=== PATIENT | male | born 1955 | race Hispanic/Latino ===

== ENCOUNTER 2018-08-23 14:33 | Inpatient (IN) | payer MEDICAID ==
[2018-08-23 14:44] VITALS: BMI 20.6
--- NOTE | 2018-08-23 15:03 | ED PDOC ---
Arrival/HPI - General Chief Complaint: Shortness Of Breath Time Seen by Provider: 08/23/18 14:36 Historian: Patient - History of Present Illness Narrative History of Present Illness (Text): 08/23/18 17:02 63 year old male, whose past medical history includes COPD, ETOH abuse, peripheral artery disease, and right foot toe amputation, who presents to the emergency department complaining of dizziness, shortness of breath, and dec reased appetite x 4 days. Patent reports he is unable to walk and states "everything hurts". Patient is concerned for collapsed lung. He denies any fever, chills, headaches, chest pain, or any other complaints. Time/Duration: > week Symptom Onset: Gradual Symptom Course: Unchanged Activities at Onset: Light Context: Home Past Medical History - Provider Review Nursing Documentation Reviewed: Yes - Infectious Disease Hx of Infectious Diseases: None - Tetanus Immunization Tetanus Immunization: Unknown - Cardiac Hx Cardiac Disorders: No - Pulmonary Hx Asthma: Yes Hx Bronchitis: Yes Hx Pneumonia: Yes Other/Comment: Collapsed lung - Neurological Hx Neurological Disorder: No - HEENT Hx HEENT Disorder: No - Renal Hx Renal Disorder: No - Endocrine/Metabolic Hx Endocrine Disorders: No Other/Comment: Pre-diabetic - Hematological/Oncological Hx Blood Disorders: No Hx AIDS: No - Integumentary Hx Dermatological Disorder: Yes Hx Cellulitis: Yes - Musculoskeletal/Rheumatological Hx Falls: Yes - Gastrointestinal Hx Gastrointestinal Disorders: Yes - Genitourinary/Gynecological Hx Genitourinary Disorders: Yes (inguinal hernia) - Psychiatric Hx Psychophysiologic Disorder: Yes (etoh abuse) Hx Substance Use: No - Surgical History Other/Comment: toe amputation - Anesthesia Hx Anesthesia: Yes Hx Anesthesia Reactions: No Hx Malignant Hyperthermia: No Family/Social History - Physician Review Nursing Documentation Reviewed: Yes Family/Social History: Unknown Family HX Smoking Status: Heavy Smoker > 10 Cigarettes Daily Hx Alcohol Use: Yes Frequency of alcohol use: Few days per week Hx Substance Use: No Allergies/Home Meds Allergies/Adverse Reactions: Allergies strawberry Allergy (Mild, Verified 08/23/18 14:44) ITCHING EGG Allergy (Verified 08/23/18 14:44) ITCHING peanut Allergy (Verified 08/23/18 14:44) ITCHING peanut oil Allergy (Verified 08/23/18 14:44) ITCHING Penicillins Allergy (Verified 08/23/18 14:44) RASH Review of Systems - Physician Review All systems were reviewed & negative as marked: Yes - Review of Systems Constitutional: absent: Fevers Respiratory: SOB. absent: Cough Cardiovascular: absent: Chest Pain Gastrointestinal: Appetite Changes. absent: Abdominal Pain Musculoskeletal: absent: Back Pain, Neck Pain Neurological: Dizziness. absent: Headache Endocrine: absent: Diaphoresis Physical Exam Vital Signs Reviewed: Yes Vital Signs Temp Pulse Resp BP Pulse Ox 08/23/18 14:55 98.1 F 93 H 18 112/75 95 Temperature: Afebrile Blood Pressure: Normal Pulse: Regular Respiratory Rate: Normal Appearance: Positive for: Non-Toxic, Comfortable, Unkept, Other (Poor hygeine) Pain Distress: None Mental Status: Positive for: Alert and Oriented X 3 - Systems Exam Head: Present: Atraumatic, Normocephalic Pupils: Present: PERRL Extroacular Muscles: Present: EOMI Conjunctiva: Present: Normal Mouth: Present: Moist Mucous Membranes Neck: Present: Normal Range of Motion Respiratory/Chest: Present: Good Air Exchange, Wheezes (mild expiratory wheezing), Other (prolonged expiratory phase ). No: Respiratory Distress, Accessory Muscle Use, Decreased Breath Sounds (equal breath sounds) Cardiovascular: Present: Regular Rate and Rhythm, Normal S1, S2. No: Murmurs Abdomen: No: Tenderness, Distention, Peritoneal Signs Back: Present: Normal Inspection Upper Extremity: Present: Normal Inspection. No: Cyanosis, Edema Lower Extremity: Present: Normal Inspection. No: Edema Neurological: Present: GCS=15, Speech Normal Skin: Present: Warm, Dry, Normal Color. No: Rashes Psychiatric: Present: Alert, Oriented x 3, Normal Insight, Normal Concentration Medical Decision Making ED Course and Treatment: 08/23/18 16:58 Impression: 63 year old male presents to the emergency department complaining of dizziness, shortness of breath, and decreased appetite x 4 days Plan: -- EKG -- Labs -- CXR -- Iv fluids -- Urinalysis -- Reassess and disposition Prior Visits: Notes and results from previous visits were reviewed. Progress Notes: 08/23/18 16:20 EKG reviewed shows: NSR at 92 bpm, normal axis, normal intervals. 08/23/18 18:06 Pre neb peak flow 150 08/23/18 18:30 Post neb peak flow 170 08/23/18 18:35 Case d/w Dr. Chilel who accepts patient to her service. Results of w/u and plan to admit for further evaluation and management. Patient agreeable w/POC. - Scribe Statement The provider has reviewed the documentation as recorded by the Scribe Edenilson Mckee All medical record entries made by the Scribe were at my direction and personally dictated by me. I have reviewed the chart and agree that the record accurately reflects my personal performance of the history, physical exam, medical decision making, and the department course for this patient. I have also personally directed, reviewed, and agree with the discharge instructions and disposition. Disposition/Present on Arrival - Present on Arrival Any Indicators Present on Arrival: No History of DVT/PE: No History of Uncontrolled Diabetes: No Urinary Catheter: No History of Decub. Ulcer: No History Surgical Site Infection Following: None - Disposition Have Diagnosis and Disposition been Completed?: Yes Diagnosis: COPD (chronic obstructive pulmonary disease) Disposition: HOSPITALIZED Disposition Time: 18:30 Patient Plan: Admission Patient Problems: Current Active Problems Problem Status Onset COPD (chronic obstructive pulmonary disease) Acute Condition: STABLE
[2018-08-23 15:29] LABS: BASO # 0.01 K/mm3 (0.0-2.0); BASO % 0.1 % (0.0-3.0); EOS % 0.1 % (1.5-5.0); HEMOGLOBIN 10.6 g/dL (14.0-18.0); LYMPH # 1.6 (1.2-3.4); LYMPH % 17.6 % (22.0-35.0); MEAN CELL VOLUME 94.9 fl (80.0-105.0); MEAN CORPUSCULAR HEMOGLOBIN 31.6 pg (25.0-35.0); MEAN CORPUSCULAR HGB CONC 33.3 g/dl (31.0-37.0); MEAN PLATELET VOLUME 11.6 fl (7.0-11.0); MONO # 0.5 (0.1-0.6); MONO % 5.8 % (1.0-6.0); RBC 3.35 10^6/uL (3.5-6.1); RED CELL DISTRIBUTION WIDTH 14.4 % (11.5-14.5); WHITE BLOOD COUNT 9.3 10^3/uL (4.5-11.0)
[2018-08-23 15:40] LABS: ALB/GLOB RATIO 1.6 (1.1-1.8); ALBUMIN 3.6 g/dL (3.0-4.8); ALT/SGPT 113 U/L (7-56); AST/SGOT 78 U/L (17-59); BLOOD UREA NITROGEN 32 mg/dL (7-21); CALCIUM 8.2 mg/dL (8.4-10.5); GFR NON-AFRICAN AMERICAN > 60
[2018-08-23 15:52] LABS: B-TYPE NATRIURETIC PEPTIDE 147 pg/mL (0-450); TROPONIN I < 0.01 ng/mL
[2018-08-23 16:07] LABS: INR 0.94; PARTIAL THROMBOPLASTIN TIME 26.4 Seconds (26.9-38.3); PROTHROMBIN TIME 10.4 SECONDS (9.4-12.5)
[2018-08-23] MEDS ORDERED: Sodium Chloride 0.9% 1,000 ML IV SCH (16:30)
[2018-08-23 17:12] LABS: URINE BILIRUBIN NEGATIVE (NEGATIVE); URINE BLOOD TRACE-INTACT (NEGATIVE); URINE GLUCOSE (UA) NEGATIVE (NEGATIVE); URINE LEUKOCYTE ESTERASE NEGATIVE Leu/uL (NEGATIVE); URINE PROTEIN NEGATIVE mg/dL (<30 mg/dL); URINE UROBILINOGEN 0.2 E.U./dL (<1 E.U./dL)
[2018-08-23 17:14] LABS: URINE APPEARANCE CLEAR (CLEAR); URINE COLOR YELLOW (YELLOW)
[2018-08-23 17:26] LABS: URINE RBC 0 - 2 /hpf (0-2)
[2018-08-23] MEDS: Albuterol-Ipratrop 3 mg / 0.5 (3 ml) UD IH SCH ×2 (18:11→20:23)
--- NOTE | 2018-08-23 19:00 | CARD ---
APPROVED REPORT Date of service: 08/23/2018 EKG Measurement Heart [id number] <Conclusion> Normal sinus rhythm Normal ECG
[2018-08-23] MEDS ORDERED: Albuterol-Ipratrop 3 mg / 0.5 (3 ml) UD IH PRN (19:26)
[2018-08-23] MEDS ORDERED: Azithromycin 500MG/NS 250ml 500 MG/250 ML BAG IVPB STA (19:29)
[2018-08-23 19:57] LABS: OSMOLALITY,SERUM 283 mosm/kg (272-300)
[2018-08-23] MEDS ORDERED: Multivitamin (MVI) 10 ML, Thiamine 100 MG, Folic Acid 1 MG in Sodium Chloride 0.9% 1,00... IV ONE (19:58)
--- NOTE | 2018-08-23 20:09 | CP.PCM.HP ---
<Monik Haley - Last Filed: 08/23/18 19:48> History of Present Illness - History of Present Illness History of Present Illness: Mnoik Haley, PGY1 Medicine H&P Note for Dr. Schuster: CC: Chest pain, SOB Pt is a 63 yo M with pmhx of COPD, etOH abuse, b/l LE ulcers, PAD, pneumothorax, HLD who presents to the [facility] ED for chest pain, SOB which he states started 2 days ago. Pt reports that he noticed that he was having some L sided chest pain that does not radiate and is not related to exertion when he woke up. He states that he also always has SOB but it has become increasingly worse and he has a cough now that is productive of green sputum. Pt at this time denies any fevers, chills, headache, palpitations, abd pain, n/v, c/d or dysuria. Pt states that he has a cough which is productive and L sided chest pain that is non-radiating and not related to exertion. Pmhx: COPD, etOH abuse, b/l LE ulcers, PAD, pneumothorax, HLD Pshx: R toe amputation 2/2 infection Meds: Only admits to taking tylenol All: PCN - Hives Soc: Smokes 2ppd x 30 yrs, beer 4-5 daily, denies illicit drug use Fam: Non-contributory PMD: Dr. Gilbert Pharm: Unknown Present on Admission - Present on Admission Any Indicators Present on Admission: No Review of Systems - Review of Systems Review of Systems: 12 point ROS reviewed and negative except for noted in HPI above. Past Patient History - Infectious Disease Hx of Infectious Diseases: None - Tetanus Immunizations Tetanus Immunization: Unknown - Past Medical History & Family History Past Medical History?: Yes - Past Social History Smoking Status: Heavy Smoker > 10 Cigarettes Daily - CARDIAC Hx Cardiac Disorders: No - PULMONARY Hx Asthma: Yes Hx Bronchitis: Yes Hx Pneumonia: Yes Other/Comment: Collapsed lung - NEUROLOGICAL Hx Neurological Disorder: No - HEENT Hx HEENT Problems: No - RENAL Hx Chronic Kidney Disease: No - ENDOCRINE/METABOLIC Hx Endocrine Disorders: No Other/Comment: Pre-diabetic - HEMATOLOGICAL/ONCOLOGICAL Hx Blood Disorders: No Hx AIDS: No - INTEGUMENTARY Hx Dermatological Problems: Yes Hx Cellulitis: Yes - MUSCULOSKELETAL/RHEUMATOLOGICAL Hx Falls: Yes - GASTROINTESTINAL Hx Gastrointestinal Disorders: Yes - GENITOURINARY/GYNECOLOGICAL Hx Genitourinary Disorders: Yes (inguinal hernia) - PSYCHIATRIC Hx Psychophysiologic Disorder: Yes (etoh abuse) Hx Substance Use: No - SURGICAL HISTORY Other/Comment: toe amputation - ANESTHESIA Hx Anesthesia: Yes Hx Anesthesia Reactions: No Hx Malignant Hyperthermia: No Meds Allergies/Adverse Reactions: Allergies Allergy/AdvReac Type Severity Reaction Status Date / Time strawberry Allergy Mild ITCHING Verified 08/23/18 14:44 EGG Allergy ITCHING Verified 08/23/18 14:44 peanut Allergy ITCHING Verified 08/23/18 14:44 peanut oil Allergy ITCHING Verified 08/23/18 14:44 Penicillins Allergy RASH Verified 08/23/18 14:44 Physical Exam - Constitutional Appears: Non-toxic, Cachectic - Head Exam Head Exam: ATRAUMATIC, NORMAL INSPECTION, NORMOCEPHALIC - Eye Exam Eye Exam: EOMI, Normal appearance, PERRL - Respiratory Exam Respiratory Exam: Accessory Muscle Use, Clear to Auscultation Bilateral, NORMAL BREATHING PATTERN. absent: Rales, Rhonchi, Wheezes, Respiratory Distress, Stridor - Cardiovascular Exam Cardiovascular Exam: RRR, +S1, +S2. absent: Gallop, Rubs - GI/Abdominal Exam GI & Abdominal Exam: Normal Bowel Sounds, Soft. absent: Distended, Firm, Guarding, Tenderness - Extremities Exam Extremities exam: Positive for: normal capillary refill, pedal pulses present - Back Exam Back exam: NORMAL INSPECTION. absent: CVA tenderness (L), CVA tenderness (R) - Neurological Exam Neurological exam: Alert, Oriented x3 - Psychiatric Exam Psychiatric exam: Normal Affect, Normal Mood - Skin Skin Exam: Dry, Normal Color, Warm Results - Vital Signs Recent Vital Signs: Last Vital Signs Temp 98.1 F 08/23/18 14:55 Pulse 88 08/23/18 19:43 Resp 18 08/23/18 19:43 BP 120/60 08/23/18 19:43 Pulse Ox 95 08/23/18 19:43 - Labs Result Diagrams: 08/23/18 15:24 08/23/18 15:24 Labs: Laboratory Results - last 24 hr 08/23/18 08/23/18 08/23/18 14:54 15:24 15:24 WBC 9.3 RBC 3.35 L Hgb 10.6 L Hct 31.8 L MCV 94.9 MCH 31.6 MCHC 33.3 RDW 14.4 Plt Count 198 MPV 11.6 H Neut % (Auto) 76.4 H Lymph % (Auto) 17.6 L Baxter % (Auto) 5.8 Eos % (Auto) 0.1 L Baso % (Auto) 0.1 Lymph # (Auto) 1.6 Baxter # (Auto) 0.5 Eos # (Auto) 0.0 Baso # (Auto) 0.01 Absolute Neuts (auto) 7.14 H PT 10.4 INR 0.94 APTT 26.4 L Sodium Potassium Chloride Carbon Dioxide Anion Gap BUN Creatinine Est GFR ( Amer) Est GFR (Non-Af Amer) POC Glucose (mg/dL) 90 Random Glucose Calcium Magnesium Total Bilirubin AST ALT Alkaline Phosphatase Lactate Dehydrogenase Total Creatine Kinase Troponin I NT-Pro-B Natriuret Pep Total Protein Albumin Globulin Albumin/Globulin Ratio Urine Color Urine Appearance Urine pH Ur Specific [place] Urine Protein Urine Glucose (UA) Urine Ketones Urine Blood Urine Nitrate Urine Bilirubin Urine Urobilinogen Ur Leukocyte Esterase Urine RBC Urine WBC Ur Epithelial Cells 08/23/18 08/23/18 15:24 17:00 WBC RBC Hgb Hct MCV MCH MCHC RDW Plt Count MPV Neut % (Auto) Lymph % (Auto) Baxter % (Auto) Eos % (Auto) Baso % (Auto) Lymph # (Auto) Baxter # (Auto) Eos # (Auto) Baso # (Auto) Absolute Neuts (auto) PT INR APTT Sodium 128 L Potassium 3.6 Chloride 94 L Carbon Dioxide 24 Anion Gap 14 BUN 32 H Creatinine 0.7 L Est GFR ( Amer) > 60 Est GFR (Non-Af Amer) > 60 POC Glucose (mg/dL) Random Glucose 89 Calcium 8.2 L Magnesium 2.0 Total Bilirubin 0.4 AST 78 H D ALT 113 H Alkaline Phosphatase 45 Lactate Dehydrogenase 375 Total Creatine Kinase 116 Troponin I < 0.01 NT-Pro-B Natriuret Pep 147 Total Protein 5.8 Albumin 3.6 Globulin 2.2 Albumin/Globulin Ratio 1.6 Urine Color Yellow Urine Appearance Clear Urine pH 6.0 Ur Specific [place] 1.015 Urine Protein Negative Urine Glucose (UA) Negative Urine Ketones Trace H Urine Blood Trace-intact H Urine Nitrate Negative Urine Bilirubin Negative Urine Urobilinogen 0.2 Ur Leukocyte Esterase Negative Urine RBC 0 - 2 Urine WBC None Ur Epithelial Cells None Assessment & Plan - Assessment and Plan (Free Text) Assessment: Pt is a 63 yo M with pmhx of COPD, etOH abuse, b/l LE ulcers, PAD, pneumothorax, HLD who presents to the [facility] ED for chest pain, SOB which he states started 2 days ago. Plan: Chest pain r/o ACS: - EKG NSR @ 92 - inital trop (-), trend trops x 2 - ASA 325 in ED - Asa 81 qd - A1c - Lipid panel - Echo 05/26 - LVEF 55-60 COPD exacerbation: - CXR: NAD - Duonebs PRN and Corazon - Azithromax IV EtOH w/drawal: - CIWA protocol - Pt is not in active withdrawal at this time - Ativan 1q2 PRN - Banana bag - Multivitamin PO - Folate, B12 PO - Will cont to monitor Hyponatremia: - Likely 2/2 poor PO intake - IVFs: Banana bag and NS @ 100 Pre-renal azotemia: - BUN/Cr: 32/.7 - IVFs - Will cont to monitor Hx of PAD: - Cont ASA Hx of HLD: - Cont lipitor PPx: DVT: Lovenox Case seen and discussed with Dr. Mariely Haley, PGY-1 <Nathen Schuster - Last Filed: 08/24/18 20:20> Results - Vital Signs Recent Vital Signs: Last Vital Signs Temp 97.9 F 08/24/18 18:00 Pulse 76 08/24/18 18:00 Resp 20 08/24/18 18:00 BP 102/64 08/24/18 18:00 Pulse Ox 93 L 08/24/18 18:00 - Labs Result Diagrams: 08/24/18 17:30 08/24/18 03:40 Labs: Laboratory Results - last 24 hr 08/23/18 08/23/18 08/23/18 15:24 20:20 20:55 WBC RBC Hgb Hct MCV MCH MCHC RDW Plt Count MPV Neut % (Auto) Lymph % (Auto) Baxter % (Auto) Eos % (Auto) Baso % (Auto) Lymph # (Auto) Baxter # (Auto) Eos # (Auto) Baso # (Auto) Absolute Neuts (auto) Sodium Potassium Chloride Carbon Dioxide Anion Gap BUN Creatinine Est GFR ( Amer) Est GFR (Non-Af Amer) Random Glucose Hemoglobin A1c Calcium Total Bilirubin AST ALT Alkaline Phosphatase Troponin I < 0.01 Total Protein Albumin Globulin Albumin/Globulin Ratio Triglycerides Cholesterol LDL Cholesterol Direct HDL Cholesterol Stool Occult Blood Salicylates < 1 L Urine Opiates Screen Negative Urine Methadone Screen Negative Acetaminophen < 10.0 L Ur Barbiturates Screen Negative Ur Phencyclidine Scrn Negative Ur Amphetamines Screen Negative U Benzodiazepines Scrn Negative U Oth Cocaine Metabols Negative U Cannabinoids Screen Negative Blood Type Antibody Screen BBK History Checked 08/24/18 08/24/18 08/24/18 03:40 03:40 03:40 WBC 3.5 L D RBC 2.90 L Hgb 9.5 L Hct 27.5 L MCV 94.8 MCH 32.8 MCHC 34.5 RDW 14.4 Plt Count 137 MPV 10.1 Neut % (Auto) 87.2 H Lymph % (Auto) 11.1 L Baxter % (Auto) 1.7 Eos % (Auto) 0.0 L Baso % (Auto) 0.0 Lymph # (Auto) 0.4 L Baxter # (Auto) 0.1 Eos # (Auto) 0.0 Baso # (Auto) 0.00 Absolute Neuts (auto) 3.07 Sodium 132 Potassium 4.6 Chloride 98 Carbon Dioxide 28 Anion Gap 10 BUN 17 Creatinine 0.5 L Est GFR ( Amer) > 60 Est GFR (Non-Af Amer) > 60 Random Glucose 153 H Hemoglobin A1c 5.8 Calcium 8.1 L Total Bilirubin 0.6 AST 62 H D ALT 93 H Alkaline Phosphatase 42 Troponin I < 0.01 Total Protein 5.4 L Albumin 3.2 Globulin 2.2 Albumin/Globulin Ratio 1.5 Triglycerides 83 Cholesterol 140 LDL Cholesterol Direct 70 HDL Cholesterol 62 H Stool Occult Blood Salicylates Urine Opiates Screen Urine Methadone Screen Acetaminophen Ur Barbiturates Screen Ur Phencyclidine Scrn Ur Amphetamines Screen U Benzodiazepines Scrn U Oth Cocaine Metabols U Cannabinoids Screen Blood Type Antibody Screen BBK History Checked 08/24/18 08/24/18 08/24/18 11:30 13:00 17:30 WBC RBC Hgb 9.0 L Hct 26.1 L MCV MCH MCHC RDW Plt Count MPV Neut % (Auto) Lymph % (Auto) Baxter % (Auto) Eos % (Auto) Baso % (Auto) Lymph # (Auto) Baxter # (Auto) Eos # (Auto) Baso # (Auto) Absolute Neuts (auto) Sodium Potassium Chloride Carbon Dioxide Anion Gap BUN Creatinine Est GFR ( Amer) Est GFR (Non-Af Amer) Random Glucose Hemoglobin A1c Calcium Total Bilirubin AST ALT Alkaline Phosphatase Troponin I Total Protein Albumin Globulin Albumin/Globulin Ratio Triglycerides Cholesterol LDL Cholesterol Direct HDL Cholesterol Stool Occult Blood Positive H Salicylates Urine Opiates Screen Urine Methadone Screen Acetaminophen Ur Barbiturates Screen Ur Phencyclidine Scrn Ur Amphetamines Screen U Benzodiazepines Scrn U Oth Cocaine Metabols U Cannabinoids Screen Blood Type O POSITIVE Antibody Screen Negative BBK History Checked Patient has bt Attending/Attestation - Attestation I have personally seen and examined this patient.: Yes I have fully participated in the care of the patient.: Yes I have reviewed all pertinent clinical information: Yes Notes (Text): 08/24/18 20:20 seen and examined. Discussed with resident. A&P as above.
[2018-08-23 20:27] LABS: ACETAMINOPHEN < 10.0 ug/ml (10.0-20.0); SALICYLATE < 1 mg/dL (2.0-20.0)
[2018-08-23 21:12] LABS: BARBITURATES, UR NEGATIVE (NEGATIVE); BENZODIAZEPINES, UR NEGATIVE (NEGATIVE); OPIATES, UR NEGATIVE (NEGATIVE); PHENCYCLIDINE, UR NEGATIVE (NEGATIVE)
[2018-08-23] MEDS ORDERED: MethylPREDNISolone 40 mg Vial IVP SCH (22:00)
[2018-08-24 04:04] LABS: HEMOGLOBIN 9.5 g/dL (14.0-18.0); LYMPH # 0.4 (1.2-3.4); LYMPH % 11.1 % (22.0-35.0); MEAN CELL VOLUME 94.8 fl (80.0-105.0); MEAN CORPUSCULAR HEMOGLOBIN 32.8 pg (25.0-35.0); MEAN CORPUSCULAR HGB CONC 34.5 g/dl (31.0-37.0); MEAN PLATELET VOLUME 10.1 fl (7.0-11.0); MONO # 0.1 (0.1-0.6); MONO % 1.7 % (1.0-6.0); RBC 2.9 10^6/uL (3.5-6.1); RED CELL DISTRIBUTION WIDTH 14.4 % (11.5-14.5)
[2018-08-24 04:17] LABS: WHITE BLOOD COUNT 3.5 10^3/uL (4.5-11.0)
[2018-08-24 04:28] LABS: LDL CHOLESTEROL 70 mg/dL (0-129)
[2018-08-24 04:29] LABS: TROPONIN I < 0.01 ng/mL
[2018-08-24 04:57] LABS: ALB/GLOB RATIO 1.5 (1.1-1.8); ALBUMIN 3.2 g/dL (3.0-4.8); ALT/SGPT 93 U/L (7-56); AST/SGOT 62 U/L (17-59); BLOOD UREA NITROGEN 17 mg/dL (7-21); CALCIUM 8.1 mg/dL (8.4-10.5); GFR NON-AFRICAN AMERICAN > 60; HDL CHOLESTEROL 62 mg/dL (29-60)
[2018-08-24] MEDS: Budesonide 0.5 mg/2 ml Inhal Susp UD IH SCH ×2 (08:38→19:50)
[2018-08-24] MEDS: Albuterol-Ipratrop 3 mg / 0.5 (3 ml) UD IH SCH ×2 (08:38→19:50)
--- NOTE | 2018-08-24 08:56 | RAD ---
Date of service: 08/23/2018 HISTORY: cp COMPARISON: No prior. TECHNIQUE: Chest PA and lateral views FINDINGS: LUNGS: The lungs have a hyper expanded appearance consistent with COPD. No evidence of pneumonia PLEURA: No significant pleural effusion identified. No pneumothorax apparent. CARDIOVASCULAR: No aortic atherosclerotic calcification present. Normal cardiac size. No pulmonary vascular congestion. OSSEOUS STRUCTURES: No significant abnormalities. VISUALIZED UPPER ABDOMEN: Normal. OTHER FINDINGS: None. IMPRESSION: The lungs have a hyper expanded appearance consistent with COPD. No evidence of pneumonia
[2018-08-24] MEDS: MethylPREDNISolone 40 mg Vial IVP SCH ×3 (09:21→21:36)
[2018-08-24] MEDS: Azithromycin 250 MG in Sodium Chloride 0.9% 250 ML IVPB SCH (09:21)
[2018-08-24] MEDS: Enoxaparin 40 mg Syringe SC SCH (09:22)
--- NOTE | 2018-08-24 12:54 | CP.PCM.PN ---
<Monik Haley - Last Filed: 08/24/18 22:38> Subjective - Date & Time of Evaluation Date of Evaluation: 08/24/18 Time of Evaluation: 12:00 - Subjective Subjective: Monik Haley, PGY1 Medicine Progress Note: Pt was seen and examined this AM at bedside. Pt overnight had no acute events. Pts CIWA was 1 overnight with no ativan given. At this time the pt has no acute complaints and is resting comfortably. He states that his chest pain has improved, as has his SOB. Pt admitted to dark stool per nursing, though this was not witnessed. Objective - Vital Signs/Intake and Output Vital Signs (last 24 hours): Temp Pulse Resp BP Pulse Ox 98.4 F 84 19 124/75 97 08/24/18 12:00 08/24/18 12:00 08/24/18 12:00 08/24/18 12:00 08/23/18 21:44 Intake and Output: 08/24/18 08/24/18 06:59 18:59 Intake Total 1050 Output Total 900 Balance 150 - Medications Medications: Current Medications Albuterol/Ipratropium (Duoneb 3 Mg/0.5 Mg (3 Ml) Ud) 3 ml IH Q2H PRN PRN Reason: Shortness of Breath Albuterol/Ipratropium (Duoneb 3 Mg/0.5 Mg (3 Ml) Ud) 3 ml IH [id number] [facility] Last Admin: 08/24/18 08:38 Dose: 3 ml Aspirin (Aspirin Chewable) 81 mg PO DAILY [facility] Last Admin: 08/24/18 09:22 Dose: 81 mg Atorvastatin Calcium (Lipitor) 40 mg PO DAILY [facility] Last Admin: 08/24/18 09:22 Dose: 40 mg Budesonide (Pulmicort Respules) 0.5 mg IH [id number] [facility] Last Admin: 08/24/18 08:38 Dose: 0.5 mg Enoxaparin Sodium (Lovenox) 40 mg SC DAILY [facility]; Protocol Last Admin: 08/24/18 09:22 Dose: 40 mg Folic Acid (Folic Acid) 1 mg PO DAILY [facility] Last Admin: 08/24/18 09:22 Dose: 1 mg Azithromycin 250 mg/ Sodium (Chloride) 250 mls @ 167 mls/hr IVPB DAILY [facility]; Protocol Last Admin: 08/24/18 09:21 Dose: 167 mls/hr Lorazepam (Ativan) 1 mg IVP Q2 PRN; Protocol PRN Reason: Withdrawal Methylprednisolone (Solu-Medrol) 20 mg IVP Q8 [facility] Last Admin: 08/24/18 09:21 Dose: 20 mg Pantoprazole Sodium (Protonix Inj) 40 mg IVP Q12 [facility] Thiamine HCl (Vitamin B1 Tab) 100 mg PO DAILY [facility] Last Admin: 08/24/18 09:22 Dose: 100 mg - Labs Labs: 08/24/18 03:40 08/24/18 03:40 PT 10.4 SECONDS (9.4-12.5) 08/23/18 15:24 INR 0.94 08/23/18 15:24 APTT 26.4 Seconds (26.9-38.3) L 08/23/18 15:24 - Constitutional Appears: Non-toxic, Cachectic - Head Exam Head Exam: ATRAUMATIC, NORMAL INSPECTION, NORMOCEPHALIC - Eye Exam Eye Exam: EOMI, Normal appearance, PERRL - Respiratory Exam Respiratory Exam: Accessory Muscle Use, Clear to Auscultation Bilateral, NORMAL BREATHING PATTERN. absent: Rales, Rhonchi, Wheezes, Respiratory Distress, Stridor - Cardiovascular Exam Cardiovascular Exam: RRR, +S1, +S2. absent: Gallop, Rubs - GI/Abdominal Exam GI & Abdominal Exam: Normal Bowel Sounds, Soft. absent: Distended, Firm, Guarding, Tenderness - Extremities Exam Extremities exam: Positive for: normal capillary refill, pedal pulses present - Back Exam Back exam: NORMAL INSPECTION. absent: CVA tenderness (L), CVA tenderness (R) - Neurological Exam Neurological exam: Alert, Oriented x3 - Psychiatric Exam Psychiatric exam: Normal Affect, Normal Mood - Skin Skin Exam: Dry, Normal Color, Warm Assessment & Plan - Assessment and Plan (Free Text) Assessment: Pt is a 63 yo M with pmhx of COPD, etOH abuse, b/l LE ulcers, PAD, pneumothorax, HLD who [place] [facility] [place] pain, SOB which he states started 2 days ago. Plan: Chest pain r/o ACS: - EKG NSR @ 92 - Trops (-) x3 - ASA 325 in ED - Asa 81 qd - A1c - 5.8 - Lipid panel - Echo 05/26 - LVEF 55-60 Dark Tarry Stool: - Per pt, pt is having dark tarry stool - FOBT (+) - Will get GI consult - Pt is noted to have a low hgb at this time - Protonix 40 IV BID COPD exacerbation: - CXR: NAD - Duonebs PRN and Corazon - Azithromax IV EtOH w/drawal: - CIWA protocol - Pt is not in active withdrawal at this time - Ativan 1q2 PRN - Banana bag - Multivitamin PO - Folate, B12 PO - Will cont to monitor Hyponatremia: - Likely 2/2 poor PO intake - IVFs: Banana bag and NS @ 100 Pre-renal azotemia: - BUN/Cr: 32/.7 - IVFs - Will cont to monitor Hx of PAD: - Cont ASA Hx of HLD: - Cont lipitor PPx: DVT: Lovenox GI: Protonix 40 IVP BID Case seen and discussed with Dr. Getachew Haley, PGY-1 <Ced Chilel - Last Filed: 08/25/18 13:59> Objective - Vital Signs/Intake and Output Vital Signs (last 24 hours): Temp Pulse Resp BP Pulse Ox 97.8 F 63 20 109/65 97 08/25/18 08:04 08/25/18 08:04 08/25/18 08:04 08/25/18 08:04 08/25/18 08:04 Intake and Output: 08/25/18 08/25/18 06:59 18:59 Intake Total 540 Balance 540 - Medications Medications: Current Medications Albuterol/Ipratropium (Duoneb 3 Mg/0.5 Mg (3 Ml) Ud) 3 ml IH Q2H PRN PRN Reason: Shortness of Breath Albuterol/Ipratropium (Duoneb 3 Mg/0.5 Mg (3 Ml) Ud) 3 ml IH [id number] [facility] Last Admin: 08/25/18 07:49 Dose: 3 ml Aspirin (Aspirin Chewable) 81 mg PO DAILY [facility] Last Admin: 08/24/18 09:22 Dose: 81 mg Atorvastatin Calcium (Lipitor) 40 mg PO DAILY [facility] Last Admin: 08/25/18 09:19 Dose: 40 mg Budesonide (Pulmicort Respules) 0.5 mg IH [id number] [facility] Last Admin: 08/25/18 07:49 Dose: 0.5 mg Enoxaparin Sodium (Lovenox) 40 mg SC DAILY [facility]; Protocol Last Admin: 08/24/18 09:22 Dose: 40 mg Folic Acid (Folic Acid) 1 mg PO DAILY [facility] Last Admin: 08/25/18 09:19 Dose: 1 mg Azithromycin 250 mg/ Sodium (Chloride) 250 mls @ 167 mls/hr IVPB DAILY [facility]; Protocol Last Admin: 08/25/18 09:19 Dose: 167 mls/hr Lorazepam (Ativan) 1 mg IVP Q2 PRN; Protocol PRN Reason: Withdrawal Methylprednisolone (Solu-Medrol) 20 mg IVP Q8 [facility] Last Admin: 08/25/18 05:18 Dose: 20 mg Multivitamins/Minerals (Therapeutic-M Tab) 1 tab PO 0800 [facility] Pantoprazole Sodium (Protonix Inj) 40 mg IVP Q12 [facility] Last Admin: 08/25/18 09:19 Dose: 40 mg Thiamine HCl (Vitamin B1 Tab) 100 mg PO DAILY [facility] Last Admin: 08/25/18 09:19 Dose: 100 mg - Labs Labs: 08/25/18 06:10 08/25/18 06:10 PT 10.4 SECONDS (9.4-12.5) 08/23/18 15:24 INR 0.94 08/23/18 15:24 APTT 26.4 Seconds (26.9-38.3) L 08/23/18 15:24 Attending/Attestation - Attestation I have personally seen and examined this patient.: Yes I have fully participated in the care of the patient.: Yes I have reviewed all pertinent clinical information, including history, physical exam and plan: Yes Notes (Text): Attending note; Patient seen and examined with resident. Patient is alert and awake. Complaining of shortness of breath/wheezing. Denies any chest pain. not in Any acute distress. Patient is a 63-year-old male with pmhx of COPD, etOH abuse, PAD, pneumothorax, HLD who [place] [facility] [place] pain, SOB which he states started 2 days ago. 1. Shortness of breath/acute COPD exacerbation. Continue oxygen as needed. Continue DuoNeb and IV Solu-Medrol. Pulse ox closely. 2. Pleuritic chest pain; resolved completely. Cardiac enzymes 3 negative. 3. Smoking; smoking cessation is strongly advised . 4. alcohol abuse ; Alcohol cessation is strongly advised. 5. Transaminitis; due to alcohol abuse. Hepatitis profile is negative . 6. Hyponatremia and hypochloremia resolved with IV fluid resuscitation; . 7. GI bleed; continue IV fluids. Continue Protonix. Stool for occult blood is positive. GI evaluation requested Unsteady gait. Physical therapy evaluation requested . Upon discharge the patient will follow up with PMD Dr. Gilbert.
[2018-08-24 20:41] LABS: HEPATITIS B SURFACE AG Negative (NEGATIVE)
[2018-08-24 20:46] LABS: HEPATITIS A IGM NEGATIVE (NEGATIVE); HEPATITIS B CORE AB NEGATIVE (NEGATIVE)
[2018-08-24 20:58] LABS: HEPATITIS C ANTIBODY NEGATIVE (NEGATIVE)
[2018-08-25] MEDS: Albuterol-Ipratrop 3 mg / 0.5 (3 ml) UD IH SCH ×4 (01:50→19:35)
[2018-08-25] MEDS: MethylPREDNISolone 40 mg Vial IVP SCH ×3 (05:18→21:38)
[2018-08-25 06:59] LABS: HEMOGLOBIN 8.9 g/dL (14.0-18.0); LYMPH # 0.6 (1.2-3.4); LYMPH % 9.2 % (22.0-35.0); MEAN CELL VOLUME 96.7 fl (80.0-105.0); MEAN CORPUSCULAR HEMOGLOBIN 32.4 pg (25.0-35.0); MEAN CORPUSCULAR HGB CONC 33.5 g/dl (31.0-37.0); MEAN PLATELET VOLUME 11.1 fl (7.0-11.0); MONO # 0.3 (0.1-0.6); MONO % 4.7 % (1.0-6.0); RBC 2.75 10^6/uL (3.5-6.1); RED CELL DISTRIBUTION WIDTH 15.1 % (11.5-14.5)
[2018-08-25 07:26] LABS: ALB/GLOB RATIO 1.5 (1.1-1.8); ALBUMIN 3.2 g/dL (3.0-4.8); ALT/SGPT 80 U/L (7-56); AST/SGOT 46 U/L (17-59); BLOOD UREA NITROGEN 13 mg/dL (7-21); CALCIUM 8.1 mg/dL (8.4-10.5); GFR NON-AFRICAN AMERICAN > 60
[2018-08-25] MEDS: Budesonide 0.5 mg/2 ml Inhal Susp UD IH SCH ×2 (07:49→19:35)
[2018-08-25] MEDS: Azithromycin 250 MG in Sodium Chloride 0.9% 250 ML IVPB SCH (09:19)
[2018-08-25 10:30] LABS: IRON 67 ug/dL (45-180)
[2018-08-25 10:40] LABS: % IRON SATURATION 24 % (20-55); TOTAL IRON BINDING CAPACITY 274 ug/dL (261-462)
--- NOTE | 2018-08-25 13:17 | CP.PCM.PN ---
<Kiesha Bond - Last Filed: 08/25/18 13:20> Subjective - Date & Time of Evaluation Date of Evaluation: 08/25/18 Time of Evaluation: 08:00 - Subjective Subjective: INTERNAL MEDICINE PROGRESS NOTE FOR DR. SHANNON Bond PGY1 Pt seen and examined at bedside this am. No acute events overnight. Pt not complaining of withdrawal symptoms. He denies nausea, vomiting, hematemsis, hematochezia. He is denying 12 point ROS Objective - Vital Signs/Intake and Output Vital Signs (last 24 hours): Temp Pulse Resp BP Pulse Ox 97.8 F 63 20 109/65 97 08/25/18 08:04 08/25/18 08:04 08/25/18 08:04 08/25/18 08:04 08/25/18 08:04 Intake and Output: 08/25/18 08/25/18 06:59 18:59 Intake Total 540 Balance 540 - Medications Medications: Current Medications Albuterol/Ipratropium (Duoneb 3 Mg/0.5 Mg (3 Ml) Ud) 3 ml IH Q2H PRN PRN Reason: Shortness of Breath Albuterol/Ipratropium (Duoneb 3 Mg/0.5 Mg (3 Ml) Ud) 3 ml IH [id number] [facility] Last Admin: 08/25/18 07:49 Dose: 3 ml Aspirin (Aspirin Chewable) 81 mg PO DAILY [facility] Last Admin: 08/24/18 09:22 Dose: 81 mg Atorvastatin Calcium (Lipitor) 40 mg PO DAILY [facility] Last Admin: 08/25/18 09:19 Dose: 40 mg Budesonide (Pulmicort Respules) 0.5 mg IH [id number] [facility] Last Admin: 08/25/18 07:49 Dose: 0.5 mg Enoxaparin Sodium (Lovenox) 40 mg SC DAILY [facility]; Protocol Last Admin: 08/24/18 09:22 Dose: 40 mg Folic Acid (Folic Acid) 1 mg PO DAILY [facility] Last Admin: 08/25/18 09:19 Dose: 1 mg Azithromycin 250 mg/ Sodium (Chloride) 250 mls @ 167 mls/hr IVPB DAILY [facility]; Protocol Last Admin: 08/25/18 09:19 Dose: 167 mls/hr Lorazepam (Ativan) 1 mg IVP Q2 PRN; Protocol PRN Reason: Withdrawal Methylprednisolone (Solu-Medrol) 20 mg IVP Q8 [facility] Last Admin: 08/25/18 05:18 Dose: 20 mg Pantoprazole Sodium (Protonix Inj) 40 mg IVP Q12 [facility] Last Admin: 08/25/18 09:19 Dose: 40 mg Thiamine HCl (Vitamin B1 Tab) 100 mg PO DAILY [facility] Last Admin: 08/25/18 09:19 Dose: 100 mg - Labs Labs: 08/25/18 06:10 08/25/18 06:10 PT 10.4 SECONDS (9.4-12.5) 08/23/18 15:24 INR 0.94 08/23/18 15:24 APTT 26.4 Seconds (26.9-38.3) L 08/23/18 15:24 - Constitutional Appears: Non-toxic, Cachectic - Head Exam Head Exam: ATRAUMATIC, NORMAL INSPECTION, NORMOCEPHALIC - Eye Exam Eye Exam: EOMI, Normal appearance, PERRL - Respiratory Exam Respiratory Exam: Accessory Muscle Use, Clear to Auscultation Bilateral, NORMAL BREATHING PATTERN. absent: Rales, Rhonchi, Wheezes, Respiratory Distress, Stridor - Cardiovascular Exam Cardiovascular Exam: RRR, +S1, +S2. absent: Gallop, Rubs - GI/Abdominal Exam GI & Abdominal Exam: Normal Bowel Sounds, Soft. absent: Distended, Firm, Guarding, Tenderness - Extremities Exam Extremities exam: Positive for: normal capillary refill, pedal pulses present - Back Exam Back exam: NORMAL INSPECTION. absent: CVA tenderness (L), CVA tenderness (R) - Neurological Exam Neurological exam: Alert, Oriented x3 - Psychiatric Exam Psychiatric exam: Normal Affect, Normal Mood - Skin Skin Exam: Dry, Normal Color, Warm Assessment and Plan - Assessment and Plan (Free Text) Assessment: 63 yo M with pmhx of COPD, etOH abuse, b/l LE ulcers, PAD, pneumothorax, HLD who presents to the [facility] [place] ED for chest pain, SOB. Hospital stay complicated by dark ta rry stool, decreasing hemoglobin, + FOBT. Plan: GI bleed - Pt previously complained of dark tarry stool. FOBT (+). Hgb has progressively declined He is hemodynamically stable - GI is consulted. Awaiting recs for endoscopy - Continue protonix 40 IV BID - f/u iron studies to r/u anemia COPD exacerbation: - Pt still has wheezing - CXR: NAD - continue duonebs prn/sarita, budesonide, - continue solu medrol 20Q8 - continue empiric azithromycin EtOH w/d - not currently withdrawing today - continue CIWA protocol - continue oral thiamine, multivitamin, folic acid Chest pain r/o ACS: - EKG NSR @ 92, Trops (-) x3, - aspirin on hold d/t GI bleed - continue atorvastatin 40 - A1c - 5.8 - Echo 05/26 - LVEF 55-60 Hx of PAD: - ASA on hold HLD: - Cont lipitor DVT/GI PPx: SCD/protonix. Lovenox on hold d/t GIB PT recs: Home w/ services Case reviewed with attending physician, Dr. Ale Bond PGY1 <Ced Chilel - Last Filed: 08/25/18 14:03> Objective - Vital Signs/Intake and Output Vital Signs (last 24 hours): Temp Pulse Resp BP Pulse Ox 97.8 F 63 20 109/65 97 08/25/18 08:04 08/25/18 08:04 08/25/18 08:04 08/25/18 08:04 08/25/18 08:04 Intake and Output: 08/25/18 08/25/18 06:59 18:59 Intake Total 540 Balance 540 - Medications Medications: Current Medications Albuterol/Ipratropium (Duoneb 3 Mg/0.5 Mg (3 Ml) Ud) 3 ml IH Q2H PRN PRN Reason: Shortness of Breath Albuterol/Ipratropium (Duoneb 3 Mg/0.5 Mg (3 Ml) Ud) 3 ml IH [id number] [facility] Last Admin: 08/25/18 13:50 Dose: 3 ml Aspirin (Aspirin Chewable) 81 mg PO DAILY [facility] Last Admin: 08/24/18 09:22 Dose: 81 mg Atorvastatin Calcium (Lipitor) 40 mg PO DAILY [facility] Last Admin: 08/25/18 09:19 Dose: 40 mg Budesonide (Pulmicort Respules) 0.5 mg IH [id number] [facility] Last Admin: 08/25/18 07:49 Dose: 0.5 mg Enoxaparin Sodium (Lovenox) 40 mg SC DAILY [facility]; Protocol Last Admin: 08/24/18 09:22 Dose: 40 mg Folic Acid (Folic Acid) 1 mg PO DAILY [facility] Last Admin: 08/25/18 09:19 Dose: 1 mg Azithromycin 250 mg/ Sodium (Chloride) 250 mls @ 167 mls/hr IVPB DAILY [facility]; Protocol Last Admin: 08/25/18 09:19 Dose: 167 mls/hr Lorazepam (Ativan) 1 mg IVP Q2 PRN; Protocol PRN Reason: Withdrawal Methylprednisolone (Solu-Medrol) 20 mg IVP Q8 [facility] Last Admin: 08/25/18 05:18 Dose: 20 mg Multivitamins/Minerals (Therapeutic-M Tab) 1 tab PO 0800 [facility] Pantoprazole Sodium (Protonix Inj) 40 mg IVP Q12 [facility] Last Admin: 08/25/18 09:19 Dose: 40 mg Thiamine HCl (Vitamin B1 Tab) 100 mg PO DAILY [facility] Last Admin: 08/25/18 09:19 Dose: 100 mg - Labs Labs: 08/25/18 06:10 08/25/18 06:10 PT 10.4 SECONDS (9.4-12.5) 08/23/18 15:24 INR 0.94 08/23/18 15:24 APTT 26.4 Seconds (26.9-38.3) L 08/23/18 15:24 Attending/Attestation - Attestation I have personally seen and examined this patient.: Yes I have fully participated in the care of the patient.: Yes I have reviewed all pertinent clinical information, including history, physical exam and plan: Yes Notes (Text): 08/25/18 13:59 Attending note; Patient seen and examined with resident. Patient is alert and awake. Complaining of shortness of breath/wheezing. Denies any chest pain. not in Any acute distress. Denies any abdominal pain. Tolerating diet well. Denies any nausea, vomiting Denies any hematemesis or melena. Patient is a 63-year-old male with pmhx of COPD, etOH abuse, PAD, pneumothorax, HLD who presents to the [facility] [place] ED for chest pain, SOB which he states started 2 days ago. 1. Shortness of breath/acute COPD exacerbation. Continue oxygen as needed. Continue DuoNeb and IV Solu-Medrol. 2. Pleuritic chest pain; resolved . Cardiac enzymes 3 negative. 3. Smoking; smoking cessation is strongly advised . 4. alcohol abuse ; Alcohol cessation is strongly advised. 5. Transaminitis; due to alcohol abuse. Hepatitis profile is negative . 6. Hyponatremia and hypochloremia resolved with IV fluid resuscitation; . 7. GI bleed; continue IV fluids. Continue IV Protonix. Stool for occult blood is positive. GI evaluation appreciated. Hemoglobin dropped from 10.6-8.9. Monitor closely. Started back on diet. Physical therapy evaluation appreciated. Upon discharge the patient will follow up with PMD Dr. Gilbert. 08/25/18 14:03
--- NOTE | 2018-08-25 14:33 | CP.PCM.CON ---
<Marylou Madrigal - Last Filed: 08/25/18 15:20> History of Present Illness - History of Present Illness History of Present Illness: Gastorenterology Fellow/PGY6 Consult Note 63 year old male with PMH of COPD, prior spontaneous left pneumothorax 04/2017, alcohol abuse, PAD complicated by leg ulcers/right toe amputation, and HLD presenting with chest pain and shortness of breath. Active treatment of COPD exacerbation. GI consultation for anemia. Patient notes chronic use of tylenol and baby aspirin for many years with most recent use of 8-10 tabs of aspriin daily since 07/04/18 up to the day of admission alongwith daily alcohol abuse. Denies nausea, vomiting, hematemesis, abdominal pain, diarrhea, constipation, melena, hematochezia, or unintentional weight loss. No prior EGD or colonoscopy. Family History-denies stomach cancer, colon cancer Social History- 2ppd x 30 yrs, beer 4-5 daily, denies illicit drug use Surgical History-right toe amputation Review of Systems - Review of Systems Review of Systems: 12-point review of systems negative except for as above Past Patient History - Infectious Disease Hx of Infectious Diseases: None - Tetanus Immunizations Tetanus Immunization: Unknown - Past Medical History & Family History Past Medical History?: Yes - Past Social History Smoking Status: Current Some Days Smoker - CARDIAC Hx Cardiac Disorders: No - PULMONARY Hx Chronic Obstructive Pulmonary Disease (COPD): Yes - NEUROLOGICAL Hx Neurological Disorder: No - HEENT Hx HEENT Problems: No - RENAL Hx Chronic Kidney Disease: No - ENDOCRINE/METABOLIC Hx Endocrine Disorders: No - HEMATOLOGICAL/ONCOLOGICAL Hx Blood Disorders: No - INTEGUMENTARY Hx Dermatological Problems: No - MUSCULOSKELETAL/RHEUMATOLOGICAL Hx Musculoskeletal Disorders: No Hx Falls: Yes - GASTROINTESTINAL Hx Gastrointestinal Disorders: No - GENITOURINARY/GYNECOLOGICAL Hx Genitourinary Disorders: No - PSYCHIATRIC Hx Psychophysiologic Disorder: No - SURGICAL HISTORY Hx Surgeries: Yes Hx Amputation: Yes - ANESTHESIA Hx Anesthesia: Yes Hx Anesthesia Reactions: No Hx Malignant Hyperthermia: No Meds Allergies/Adverse Reactions: Allergies Allergy/AdvReac Type Severity Reaction Status Date / Time strawberry Allergy Mild ITCHING Verified 08/23/18 14:44 EGG Allergy ITCHING Verified 08/23/18 14:44 peanut Allergy ITCHING Verified 08/23/18 14:44 peanut oil Allergy ITCHING Verified 08/23/18 14:44 Penicillins Allergy RASH Verified 08/23/18 14:44 - Medications Medications: Current Medications Albuterol/Ipratropium (Duoneb 3 Mg/0.5 Mg (3 Ml) Ud) 3 ml IH Q2H PRN PRN Reason: Shortness of Breath Albuterol/Ipratropium (Duoneb 3 Mg/0.5 Mg (3 Ml) Ud) 3 ml IH [id number] [facility] Last Admin: 08/25/18 13:50 Dose: 3 ml Aspirin (Aspirin Chewable) 81 mg PO DAILY [facility] Last Admin: 08/24/18 09:22 Dose: 81 mg Atorvastatin Calcium (Lipitor) 40 mg PO DAILY [facility] Last Admin: 08/25/18 09:19 Dose: 40 mg Budesonide (Pulmicort Respules) 0.5 mg IH [id number] [facility] Last Admin: 08/25/18 07:49 Dose: 0.5 mg Enoxaparin Sodium (Lovenox) 40 mg SC DAILY [facility]; Protocol Last Admin: 08/24/18 09:22 Dose: 40 mg Folic Acid (Folic Acid) 1 mg PO DAILY [facility] Last Admin: 08/25/18 09:19 Dose: 1 mg Azithromycin 250 mg/ Sodium (Chloride) 250 mls @ 167 mls/hr IVPB DAILY [facility]; Protocol Last Admin: 08/25/18 09:19 Dose: 167 mls/hr Lorazepam (Ativan) 1 mg IVP Q2 PRN; Protocol PRN Reason: Withdrawal Methylprednisolone (Solu-Medrol) 20 mg IVP Q8 [facility] Last Admin: 08/25/18 05:18 Dose: 20 mg Multivitamins/Minerals (Therapeutic-M Tab) 1 tab PO 0800 [facility] Pantoprazole Sodium (Protonix Inj) 40 mg IVP Q12 [facility] Last Admin: 08/25/18 09:19 Dose: 40 mg Thiamine HCl (Vitamin B1 Tab) 100 mg PO DAILY [facility] Last Admin: 08/25/18 09:19 Dose: 100 mg Physical Exam - Constitutional Appears: Non-toxic, No Acute Distress - Head Exam Head Exam: ATRAUMATIC, NORMOCEPHALIC - Eye Exam Eye Exam: EOMI, PERRL. absent: Scleral icterus Pupil Exam: PERRL. absent: Miosis, Mydriatic - ENT Exam ENT Exam: Mucous Membranes Moist, Normal Oropharynx - Neck Exam Neck exam: Positive for: Full Rom, Normal Inspection - Respiratory Exam Respiratory Exam: Clear to Auscultation Bilateral. absent: Rales, Rhonchi, Wheezes - Cardiovascular Exam Cardiovascular Exam: RRR, +S1, +S2. absent: Gallop, Rubs - GI/Abdominal Exam GI & Abdominal Exam: Normal Bowel Sounds, Soft. absent: Distended, Firm, Guarding, Organomegaly, Rebound, Rigid, Tenderness - Extremities Exam Extremities exam: Positive for: normal inspection - Neurological Exam Neurological exam: Alert - Psychiatric Exam Psychiatric exam: Normal Affect, Normal Mood - Skin Skin Exam: Dry, Intact, Normal Color, Warm Results - Vital Signs Recent Vital Signs: Last Vital Signs Temp 97.8 F 08/25/18 08:04 Pulse 63 08/25/18 08:04 Resp 20 08/25/18 08:04 BP 109/65 08/25/18 08:04 Pulse Ox 97 08/25/18 08:04 - Labs Result Diagrams: 08/25/18 06:10 08/25/18 06:10 Labs: Laboratory Results - last 24 hr 08/24/18 08/24/18 08/24/18 17:30 17:30 17:30 WBC RBC Hgb 9.0 L Hct 26.1 L MCV MCH MCHC RDW Plt Count MPV Neut % (Auto) Lymph % (Auto) Crawford % (Auto) Eos % (Auto) Baso % (Auto) Lymph # (Auto) Crawford # (Auto) Eos # (Auto) Baso # (Auto) Absolute Neuts (auto) Sodium Potassium Chloride Carbon Dioxide Anion Gap BUN Creatinine Est GFR ( Amer) Est GFR (Non-Af Amer) Random Glucose Calcium Iron TIBC % Saturation Total Bilirubin AST ALT Alkaline Phosphatase Total Protein Albumin Globulin Albumin/Globulin Ratio Hepatitis A IgM Ab Negative Hepatitis A Ab Total Antibody pos Hep Bs Antigen Negative Hep Bs Antibody Hep B Core IgM Ab Negative Hepatitis C Antibody Negative 08/24/18 08/25/18 08/25/18 17:30 06:10 06:10 WBC 6.0 D RBC 2.75 L Hgb 8.9 L Hct 26.6 L MCV 96.7 MCH 32.4 MCHC 33.5 RDW 15.1 H Plt Count 173 MPV 11.1 H Neut % (Auto) 86.1 H Lymph % (Auto) 9.2 L Crawford % (Auto) 4.7 Eos % (Auto) 0.0 L Baso % (Auto) 0.0 Lymph # (Auto) 0.6 L Crawford # (Auto) 0.3 Eos # (Auto) 0.0 Baso # (Auto) 0.00 Absolute Neuts (auto) 5.13 Sodium 133 Potassium 3.9 Chloride 98 Carbon Dioxide 30 Anion Gap 9 L BUN 13 Creatinine 0.6 L Est GFR ( Amer) > 60 Est GFR (Non-Af Amer) > 60 Random Glucose 128 H Calcium 8.1 L Iron TIBC % Saturation Total Bilirubin 0.3 AST 46 ALT 80 H Alkaline Phosphatase 41 Total Protein 5.4 L Albumin 3.2 Globulin 2.2 Albumin/Globulin Ratio 1.5 Hepatitis A IgM Ab Hepatitis A Ab Total Hep Bs Antigen Hep Bs Antibody Negative Hep B Core IgM Ab Hepatitis C Antibody 08/25/18 06:10 WBC RBC Hgb Hct MCV MCH MCHC RDW Plt Count MPV Neut % (Auto) Lymph % (Auto) Crawford % (Auto) Eos % (Auto) Baso % (Auto) Lymph # (Auto) Crawford # (Auto) Eos # (Auto) Baso # (Auto) Absolute Neuts (auto) Sodium Potassium Chloride Carbon Dioxide Anion Gap BUN Creatinine Est GFR ( Amer) Est GFR (Non-Af Amer) Random Glucose Calcium Iron 67 TIBC 274 % Saturation 24 Total Bilirubin AST ALT Alkaline Phosphatase Total Protein Albumin Globulin Albumin/Globulin Ratio Hepatitis A IgM Ab Hepatitis A Ab Total Hep Bs Antigen Hep Bs Antibody Hep B Core IgM Ab Hepatitis C Antibody Assessment & Plan - Assessment and Plan (Free Text) Assessment: 63 year old male with PMH of COPD, prior spontaneous left pneumothorax 04/2017, alcohol abuse, PAD complicated by leg ulcers/right toe amputation, and HLD presenting with chest pain and shortness of breath. Active treatment of COPD exacerbation. GI consultation for anemia. No prior EGD or colonoscopy. Plan: -EGD Monday to evaluate for PUD, rule out other pathology -chronic NSAIDS use- 8-10 tabs of aspirin daily since 07/04/18 -ordered CT A/P PO/IV contrast to evaluate for intra-abdominal pathology -PPI BID -elevated LFTs likely in setting of alcohol abuse with intoxication on admission -on [facility] protocol -Hepatitis panel negative -follow up iron panel,B12, folate -counselled on alcohol cessation -will follow clinical course <Avani,Jeimy - Last Filed: 08/25/18 15:38> Meds - Medications Medications: Current Medications Albuterol/Ipratropium (Duoneb 3 Mg/0.5 Mg (3 Ml) Ud) 3 ml IH Q2H PRN PRN Reason: Shortness of Breath Albuterol/Ipratropium (Duoneb 3 Mg/0.5 Mg (3 Ml) Ud) 3 ml IH [id number] [facility] Last Admin: 08/25/18 13:50 Dose: 3 ml Aspirin (Aspirin Chewable) 81 mg PO DAILY [facility] Last Admin: 08/24/18 09:22 Dose: 81 mg Atorvastatin Calcium (Lipitor) 40 mg PO DAILY [facility] Last Admin: 08/25/18 09:19 Dose: 40 mg Budesonide (Pulmicort Respules) 0.5 mg IH [id number] [facility] Last Admin: 08/25/18 07:49 Dose: 0.5 mg Enoxaparin Sodium (Lovenox) 40 mg SC DAILY [facility]; Protocol Last Admin: 08/24/18 09:22 Dose: 40 mg Folic Acid (Folic Acid) 1 mg PO DAILY [facility] Last Admin: 08/25/18 09:19 Dose: 1 mg Azithromycin 250 mg/ Sodium (Chloride) 250 mls @ 167 mls/hr IVPB DAILY [facility]; Protocol Last Admin: 08/25/18 09:19 Dose: 167 mls/hr Lorazepam (Ativan) 1 mg IVP Q2 PRN; Protocol PRN Reason: Withdrawal Methylprednisolone (Solu-Medrol) 20 mg IVP Q8 [facility] Last Admin: 08/25/18 05:18 Dose: 20 mg Multivitamins/Minerals (Therapeutic-M Tab) 1 tab PO 0800 [facility] Pantoprazole Sodium (Protonix Inj) 40 mg IVP Q12 [facility] Last Admin: 08/25/18 09:19 Dose: 40 mg Thiamine HCl (Vitamin B1 Tab) 100 mg PO DAILY [facility] Last Admin: 08/25/18 09:19 Dose: 100 mg Results - Vital Signs Recent Vital Signs: Last Vital Signs Temp 97.8 F 08/25/18 08:04 Pulse 63 08/25/18 08:04 Resp 20 08/25/18 08:04 BP 109/65 08/25/18 08:04 Pulse Ox 97 08/25/18 08:04 - Labs Result Diagrams: 04/20/19 06:10 08/25/18 06:10 Labs: Laboratory Results - last 24 hr 08/24/18 08/24/18 08/24/18 17:30 17:30 17:30 WBC RBC Hgb 9.0 L Hct 26.1 L MCV MCH MCHC RDW Plt Count MPV Neut % (Auto) Lymph % (Auto) Crawford % (Auto) Eos % (Auto) Baso % (Auto) Lymph # (Auto) Crawford # (Auto) Eos # (Auto) Baso # (Auto) Absolute Neuts (auto) Sodium Potassium Chloride Carbon Dioxide Anion Gap BUN Creatinine Est GFR ( Amer) Est GFR (Non-Af Amer) Random Glucose Calcium Iron TIBC % Saturation Total Bilirubin AST ALT Alkaline Phosphatase Total Protein Albumin Globulin Albumin/Globulin Ratio Hepatitis A IgM Ab Negative Hepatitis A Ab Total Antibody pos Hep Bs Antigen Negative Hep Bs Antibody Hep B Core IgM Ab Negative Hepatitis C Antibody Negative 08/24/18 08/25/18 08/25/18 17:30 06:10 06:10 WBC 6.0 D RBC 2.75 L Hgb 8.9 L Hct 26.6 L MCV 96.7 MCH 32.4 MCHC 33.5 RDW 15.1 H Plt Count 173 MPV 11.1 H Neut % (Auto) 86.1 H Lymph % (Auto) 9.2 L Crawford % (Auto) 4.7 Eos % (Auto) 0.0 L Baso % (Auto) 0.0 Lymph # (Auto) 0.6 L Crawford # (Auto) 0.3 Eos # (Auto) 0.0 Baso # (Auto) 0.00 Absolute Neuts (auto) 5.13 Sodium 133 Potassium 3.9 Chloride 98 Carbon Dioxide 30 Anion Gap 9 L BUN 13 Creatinine 0.6 L Est GFR ( Amer) > 60 Est GFR (Non-Af Amer) > 60 Random Glucose 128 H Calcium 8.1 L Iron TIBC % Saturation Total Bilirubin 0.3 AST 46 ALT 80 H Alkaline Phosphatase 41 Total Protein 5.4 L Albumin 3.2 Globulin 2.2 Albumin/Globulin Ratio 1.5 Hepatitis A IgM Ab Hepatitis A Ab Total Hep Bs Antigen Hep Bs Antibody Negative Hep B Core IgM Ab Hepatitis C Antibody 08/25/18 06:10 WBC RBC Hgb Hct MCV MCH MCHC RDW Plt Count MPV Neut % (Auto) Lymph % (Auto) Crawford % (Auto) Eos % (Auto) Baso % (Auto) Lymph # (Auto) Crawford # (Auto) Eos # (Auto) Baso # (Auto) Absolute Neuts (auto) Sodium Potassium Chloride Carbon Dioxide Anion Gap BUN Creatinine Est GFR ( Amer) Est GFR (Non-Af Amer) Random Glucose Calcium Iron 67 TIBC 274 % Saturation 24 Total Bilirubin AST ALT Alkaline Phosphatase Total Protein Albumin Globulin Albumin/Globulin Ratio Hepatitis A IgM Ab Hepatitis A Ab Total Hep Bs Antigen Hep Bs Antibody Hep B Core IgM Ab Hepatitis C Antibody Attending/Attestation - Attestation I have personally seen and examined this patient.: Yes I have fully participated in the care of the patient.: Yes I have reviewed all pertinent clinical information: Yes Notes (Text): 08/25/18 15:33 I have seen and examined the pt with the GI fellow. 63 yo M with PMH of COPD, prior spontaneous L pneumothorax (04/2017), active EtOH abuse, PAD complicated by leg ulcers/right toe amputation, and HLD presenting with chest pain and shortness of breath, recent heavy NSAID use (8-10 tabs of ASA daily for misc pains) p/w COPD exacerbation. GI consultation for stool occult positive anemia, as well as one episode of dark stool. Has never had EGD or colonoscopy. Hb lower than baseline, but stable. Pt notes he is no longer having dark stools, now brown and normal. General: disheveled HEENT: poor dentition Abd: soft, mildly distended, nontender Plan: -PPI BID -plan for EGD on Monday to r/o PUD given underlying chronic NSAID use -f/u CT A/P PO/IV contrast to evaluate for intra-abdominal pathology -f/u iron panel,B12,folate -ok for regular diet for now -d/w pt at bedside 08/25/18 15:37
[2018-08-25 17:22] LABS: FOLATE 11.9 ng/mL
[2018-08-25] MEDS ORDERED: Iohexol 240 (50 ml) ONE (19:50)
[2018-08-25] MEDS ORDERED: Iohexol 350 MG/100 ML VIAL ONE (21:58)
[2018-08-26] MEDS: Albuterol-Ipratrop 3 mg / 0.5 (3 ml) UD IH SCH ×4 (01:02→19:39)
[2018-08-26] MEDS: MethylPREDNISolone 40 mg Vial IVP SCH ×2 (05:53→10:07)
[2018-08-26 07:02] LABS: INR 0.9; PROTHROMBIN TIME 10.2 SECONDS (9.4-12.5)
[2018-08-26 07:11] LABS: HEMOGLOBIN 9.2 g/dL (14.0-18.0); LYMPH # 0.6 (1.2-3.4); LYMPH % 10.5 % (22.0-35.0); MEAN CELL VOLUME 97.2 fl (80.0-105.0); MEAN CORPUSCULAR HEMOGLOBIN 32.7 pg (25.0-35.0); MEAN CORPUSCULAR HGB CONC 33.7 g/dl (31.0-37.0); MEAN PLATELET VOLUME 10.9 fl (7.0-11.0); MONO # 0.3 (0.1-0.6); MONO % 5.4 % (1.0-6.0); RBC 2.81 10^6/uL (3.5-6.1); RED CELL DISTRIBUTION WIDTH 15.2 % (11.5-14.5); WHITE BLOOD COUNT 5.2 10^3/uL (4.5-11.0)
[2018-08-26 07:33] LABS: ALB/GLOB RATIO 1.4 (1.1-1.8); ALBUMIN 3.1 g/dL (3.0-4.8); ALT/SGPT 88 U/L (7-56); AST/SGOT 51 U/L (17-59); BLOOD UREA NITROGEN 12 mg/dL (7-21); CALCIUM 8.1 mg/dL (8.4-10.5); GFR NON-AFRICAN AMERICAN > 60
[2018-08-26] MEDS: Budesonide 0.5 mg/2 ml Inhal Susp UD IH SCH ×2 (08:14→19:39)
[2018-08-26] MEDS: Azithromycin 250 MG in Sodium Chloride 0.9% 250 ML IVPB SCH (09:18)
[2018-08-26] MEDS: Multivitamin With Minerals Tab PO SCH (09:19)
--- NOTE | 2018-08-26 10:08 | CT ---
Date of service: 08/25/2018 PROCEDURE: CT Abdomen and Pelvis with contrast HISTORY: anemia, abdominal pain COMPARISON: None. TECHNIQUE: Contrast dose: Radiation dose: Total exam DLP = 266.88 mGy-cm. This CT exam was performed using one or more of the following dose reduction techniques: Automated exposure control, adjustment of the mA and/or kV according to patient size, and/or use of iterative reconstruction technique. FINDINGS: LOWER THORAX: Unremarkable. LIVER: Unremarkable. No gross lesion or ductal dilatation. GALLBLADDER AND BILE DUCTS: Unremarkable. PANCREAS: Unremarkable. No gross lesion or ductal dilatation. SPLEEN: Unremarkable. ADRENALS: Unremarkable. No mass. KIDNEYS AND URETERS: Unremarkable. No hydronephrosis. No solid mass. VASCULATURE: Unremarkable. No aortic aneurysm. No aortic atherosclerotic calcification or mural plaque present. BOWEL: Unremarkable. No obstruction. No gross mural thickening. APPENDIX: Normal appendix. PERITONEUM: Unremarkable. No free fluid. No free air. LYMPH NODES: Unremarkable. No enlarged lymph nodes. BLADDER: There is a small inguinal hernia with herniation of the anterior right edge of the bladder. There is some fatty stranding within the hernia. There is no bowel loop herniation. REPRODUCTIVE: Unremarkable. BONES: No acute fracture. OTHER FINDINGS: The report concurs with the preliminary [facility] report. IMPRESSION: There is a small inguinal hernia with herniation of the anterior right edge of the bladder. There is some fatty stranding within the hernia. There is no bowel loop herniation. No acute intra-abdominal findings
--- NOTE | 2018-08-26 10:22 | CP.PCM.PN ---
<Marylou Madrigal - Last Filed: 08/26/18 10:31> Subjective - Date & Time of Evaluation Date of Evaluation: 08/26/18 Time of Evaluation: 10:19 - Subjective Subjective: 63 year old male with PMH of COPD, prior spontaneous left pneumothorax 04/2017, alcohol abuse, PAD complicated by leg ulcers/right toe amputation, and HLD presenting with chest pain and shortness of breath. Active treatment of COPD exacerbation. GI consultation for anemia. No prior EGD or colonoscopy. Objective - Vital Signs/Intake and Output Vital Signs (last 24 hours): Temp Pulse Resp BP Pulse Ox 97.8 F 62 18 101/66 95 08/26/18 08:14 08/26/18 08:14 08/26/18 08:14 08/26/18 08:14 08/26/18 08:14 Intake and Output: 08/26/18 08/26/18 06:59 18:59 Intake Total 1560 Output Total 1100 Balance 460 - Medications Medications: Current Medications Albuterol/Ipratropium (Duoneb 3 Mg/0.5 Mg (3 Ml) Ud) 3 ml IH Q2H PRN PRN Reason: Shortness of Breath Albuterol/Ipratropium (Duoneb 3 Mg/0.5 Mg (3 Ml) Ud) 3 ml IH [id number] [facility] Last Admin: 08/26/18 08:14 Dose: 3 ml Aspirin (Aspirin Chewable) 81 mg PO DAILY [facility] Last Admin: 08/24/18 09:22 Dose: 81 mg Atorvastatin Calcium (Lipitor) 40 mg PO DAILY [facility] Last Admin: 08/26/18 09:18 Dose: 40 mg Budesonide (Pulmicort Respules) 0.5 mg IH [id number] [facility] Last Admin: 08/26/18 08:14 Dose: 0.5 mg Enoxaparin Sodium (Lovenox) 40 mg SC DAILY [facility]; Protocol Last Admin: 08/24/18 09:22 Dose: 40 mg Folic Acid (Folic Acid) 1 mg PO DAILY [facility] Last Admin: 08/26/18 09:19 Dose: 1 mg Azithromycin 250 mg/ Sodium (Chloride) 250 mls @ 167 mls/hr IVPB DAILY [facility]; Protocol Last Admin: 08/26/18 09:18 Dose: 167 mls/hr Lorazepam (Ativan) 1 mg IVP Q2 PRN; Protocol PRN Reason: Withdrawal Last Admin: 08/25/18 23:17 Dose: 1 mg Methylprednisolone (Solu-Medrol) 20 mg IVP DAILY [facility] Last Admin: 08/26/18 10:07 Dose: 20 mg Multivitamins/Minerals (Therapeutic-M Tab) 1 tab PO 0800 [facility] Last Admin: 08/26/18 09:19 Dose: 1 tab Pantoprazole Sodium (Protonix Inj) 40 mg IVP Q12 [facility] Last Admin: 08/26/18 09:19 Dose: 40 mg Thiamine HCl (Vitamin B1 Tab) 100 mg PO DAILY [facility] Last Admin: 08/26/18 09:19 Dose: 100 mg - Labs Labs: 08/26/18 06:00 08/26/18 06:00 PT 10.2 SECONDS (9.4-12.5) 08/26/18 06:00 INR 0.90 08/26/18 06:00 APTT 26.4 Seconds (26.9-38.3) L 08/23/18 15:24 - Constitutional Appears: Non-toxic, No Acute Distress - Head Exam Head Exam: ATRAUMATIC, NORMOCEPHALIC - Eye Exam Eye Exam: EOMI, PERRL. absent: Scleral icterus Pupil Exam: PERRL. absent: Miosis, Mydriatic - ENT Exam ENT Exam: Mucous Membranes Moist, Normal Oropharynx - Neck Exam Neck Exam: Full ROM, Normal Inspection - Respiratory Exam Respiratory Exam: Clear to Ausculation Bilateral. absent: Rales, Rhonchi, Wheezes - Cardiovascular Exam Cardiovascular Exam: RRR, +S1, +S2. absent: Gallop, Rubs - GI/Abdominal Exam GI & Abdominal Exam: Soft, Normal Bowel Sounds. absent: Distended, Firm, Guarding, Rigid, Tenderness, Organomegaly, Rebound - Extremities Exam Extremities Exam: Normal Inspection. absent: Pedal Edema - Neurological Exam Neurological Exam: Alert, Awake - Psychiatric Exam Psychiatric exam: Normal Affect, Normal Mood - Skin Skin Exam: Dry, Intact, Normal Color, Warm Assessment and Plan - Assessment and Plan (Free Text) Assessment: 63 year old male with PMH of COPD, prior spontaneous left pneumothorax 04/2017, alcohol abuse, PAD complicated by leg ulcers/right toe amputation, and HLD presenting with chest pain and shortness of breath. Active treatment of COPD exacerbation. GI consultation for anemia. No prior EGD or colonoscopy. Plan: -EGD Monday to evaluate for PUD with NSAIDs use, rule out other pathology -NPO after midnight -CT A/P PO/IV contrast-no acute pathology -PPI BID -iron 67, ferritin 128 B12/folate normal -elevated LFTs trending down in setting of alcohol abuse -counselled on alcohol cessation -on [facility] protocol -Hepatitis panel negative -will follow clinical course <Jeimy Varma - Last Filed: 08/26/18 11:54> Objective - Vital Signs/Intake and Output Vital Signs (last 24 hours): Temp Pulse Resp BP Pulse Ox 97.8 F 62 18 101/66 95 08/26/18 08:14 08/26/18 08:14 08/26/18 08:14 08/26/18 08:14 08/26/18 08:14 Intake and Output: 08/26/18 08/26/18 06:59 18:59 Intake Total 1560 Output Total 1100 Balance 460 - Medications Medications: Current Medications Albuterol/Ipratropium (Duoneb 3 Mg/0.5 Mg (3 Ml) Ud) 3 ml IH Q2H PRN PRN Reason: Shortness of Breath Albuterol/Ipratropium (Duoneb 3 Mg/0.5 Mg (3 Ml) Ud) 3 ml IH [id number] [facility] Last Admin: 08/26/18 08:14 Dose: 3 ml Aspirin (Aspirin Chewable) 81 mg PO DAILY [facility] Last Admin: 08/24/18 09:22 Dose: 81 mg Atorvastatin Calcium (Lipitor) 40 mg PO DAILY [facility] Last Admin: 08/26/18 09:18 Dose: 40 mg Budesonide (Pulmicort Respules) 0.5 mg IH [id number] [facility] Last Admin: 08/26/18 08:14 Dose: 0.5 mg Enoxaparin Sodium (Lovenox) 40 mg SC DAILY [facility]; Protocol Last Admin: 08/24/18 09:22 Dose: 40 mg Folic Acid (Folic Acid) 1 mg PO DAILY [facility] Last Admin: 08/26/18 09:19 Dose: 1 mg Azithromycin 250 mg/ Sodium (Chloride) 250 mls @ 167 mls/hr IVPB DAILY [facility]; Protocol Last Admin: 08/26/18 09:18 Dose: 167 mls/hr Lorazepam (Ativan) 1 mg IVP Q2 PRN; Protocol PRN Reason: Withdrawal Last Admin: 08/25/18 23:17 Dose: 1 mg Methylprednisolone (Solu-Medrol) 20 mg IVP DAILY [facility] Last Admin: 08/26/18 10:07 Dose: 20 mg Multivitamins/Minerals (Therapeutic-M Tab) 1 tab PO 0800 [facility] Last Admin: 08/26/18 09:19 Dose: 1 tab Pantoprazole Sodium (Protonix Inj) 40 mg IVP Q12 [facility] Last Admin: 08/26/18 09:19 Dose: 40 mg Thiamine HCl (Vitamin B1 Tab) 100 mg PO DAILY [facility] Last Admin: 08/26/18 09:19 Dose: 100 mg - Labs Labs: 08/26/18 06:00 08/26/18 06:00 PT 10.2 SECONDS (9.4-12.5) 08/26/18 06:00 INR 0.90 08/26/18 06:00 APTT 26.4 Seconds (26.9-38.3) L 08/23/18 15:24 Attending/Attestation - Attestation I have personally seen and examined this patient.: No I have fully participated in the care of the patient.: Yes I have reviewed all pertinent clinical information, including history, physical exam and plan: Yes Notes (Text): Pt without overnight events. NPO after midnight. Plan for EGD tmrw. Discussed with GI fellow. 08/26/18 11:53
--- NOTE | 2018-08-26 11:48 | CP.PCM.PN ---
<Kiesha Bond - Last Filed: 08/26/18 11:44> Subjective - Date & Time of Evaluation Date of Evaluation: 08/26/18 Time of Evaluation: 08:00 - Subjective Subjective: INTERNAL MEDICINE PROGRESS NOTE FOR DR. SHANNON Bond PGY1 PT seen and examined at bedside this am. No acute events overnight. Pt is denying complaints Objective - Vital Signs/Intake and Output Vital Signs (last 24 hours): Temp Pulse Resp BP Pulse Ox 97.8 F 62 18 101/66 95 08/26/18 08:14 08/26/18 08:14 08/26/18 08:14 08/26/18 08:14 08/26/18 08:14 Intake and Output: 08/26/18 08/26/18 06:59 18:59 Intake Total 1560 Output Total 1100 Balance 460 - Medications Medications: Current Medications Albuterol/Ipratropium (Duoneb 3 Mg/0.5 Mg (3 Ml) Ud) 3 ml IH Q2H PRN PRN Reason: Shortness of Breath Albuterol/Ipratropium (Duoneb 3 Mg/0.5 Mg (3 Ml) Ud) 3 ml IH [id number] [facility] Last Admin: 08/26/18 08:14 Dose: 3 ml Aspirin (Aspirin Chewable) 81 mg PO DAILY [facility] Last Admin: 08/24/18 09:22 Dose: 81 mg Atorvastatin Calcium (Lipitor) 40 mg PO DAILY [facility] Last Admin: 08/26/18 09:18 Dose: 40 mg Budesonide (Pulmicort Respules) 0.5 mg IH [id number] [facility] Last Admin: 08/26/18 08:14 Dose: 0.5 mg Enoxaparin Sodium (Lovenox) 40 mg SC DAILY [facility]; Protocol Last Admin: 08/24/18 09:22 Dose: 40 mg Folic Acid (Folic Acid) 1 mg PO DAILY [facility] Last Admin: 08/26/18 09:19 Dose: 1 mg Azithromycin 250 mg/ Sodium (Chloride) 250 mls @ 167 mls/hr IVPB DAILY [facility]; Protocol Last Admin: 08/26/18 09:18 Dose: 167 mls/hr Lorazepam (Ativan) 1 mg IVP Q2 PRN; Protocol PRN Reason: Withdrawal Last Admin: 08/25/18 23:17 Dose: 1 mg Methylprednisolone (Solu-Medrol) 20 mg IVP DAILY [facility] Last Admin: 08/26/18 10:07 Dose: 20 mg Multivitamins/Minerals (Therapeutic-M Tab) 1 tab PO 0800 [facility] Last Admin: 08/26/18 09:19 Dose: 1 tab Pantoprazole Sodium (Protonix Inj) 40 mg IVP Q12 [facility] Last Admin: 08/26/18 09:19 Dose: 40 mg Thiamine HCl (Vitamin B1 Tab) 100 mg PO DAILY [facility] Last Admin: 08/26/18 09:19 Dose: 100 mg - Labs Labs: 08/26/18 06:00 08/26/18 06:00 PT 10.2 SECONDS (9.4-12.5) 08/26/18 06:00 INR 0.90 08/26/18 06:00 APTT 26.4 Seconds (26.9-38.3) L 08/23/18 15:24 - Constitutional Appears: Non-toxic, Cachectic - Head Exam Head Exam: ATRAUMATIC, NORMAL INSPECTION, NORMOCEPHALIC - Eye Exam Eye Exam: EOMI, Normal appearance, PERRL - Respiratory Exam Respiratory Exam: Minimal wheezes, NORMAL BREATHING PATTERN. absent: Rales, Rhonchi, Respiratory Distress, Stridor - Cardiovascular Exam Cardiovascular Exam: RRR, +S1, +S2. absent: Gallop, Rubs - GI/Abdominal Exam GI & Abdominal Exam: Normal Bowel Sounds, Soft. absent: Distended, Firm, Guarding, Tenderness - Extremities Exam Extremities exam: Positive for: normal capillary refill, pedal pulses present - Back Exam Back exam: NORMAL INSPECTION. absent: CVA tenderness (L), CVA tenderness (R) - Neurological Exam Neurological exam: Alert, Oriented x3 - Psychiatric Exam Psychiatric exam: Normal Affect, Normal Mood - Skin Skin Exam: Dry, Normal Color, Warm Assessment and Plan - Assessment and Plan (Free Text) Assessment: 63 yo M with pmhx of COPD, etOH abuse, b/l LE ulcers, PAD, pneumothorax, HLD who presents to the [facility] for chest pain, SOB. Hospital stay complicated by dark tarry stool, decreasing hemoglobin, + FOBT. Plan: GI bleed - NPO tomorrow with plans for EGD by GI team to eval for PUD w/ NSAID use, r/o other pathology - Pt previously complained of dark tarry stool. FOBT (+). Hgb has progressively declined He is hemodynamically stable - Continue protonix 40 IV BID - f/u iron studies to r/u anemia COPD exacerbation: - Pt still has wheezing, however improved today - CXR: NAD - continue duonebs prn/sarita, budesonide, - decrease solu medrol 20mg daily - continue empiric azithromycin EtOH w/d - not currently withdrawing today - continue CIWA protocol - continue oral thiamine, multivitamin, folic acid Chest pain r/o ACS: - EKG NSR @ 92, Trops (-) x3, - aspirin on hold d/t GI bleed - continue atorvastatin 40 - A1c - 5.8 - Echo 05/26 - LVEF 55-60 Hx of PAD: - ASA on hold HLD: - Cont lipitor DVT/GI PPx: SCD/protonix. Lovenox on hold d/t GIB PT recs: Home w/ services Case reviewed with attending physician, Dr. Ale Bond PGY1 <Ced Chilel - Last Filed: 08/26/18 16:01> Objective - Vital Signs/Intake and Output Vital Signs (last 24 hours): Temp Pulse Resp BP Pulse Ox 97.8 F 62 18 101/66 95 08/26/18 08:14 08/26/18 08:14 08/26/18 08:14 08/26/18 08:14 08/26/18 08:14 Intake and Output: 08/26/18 08/26/18 06:59 18:59 Intake Total 1560 Output Total 1100 Balance 460 - Medications Medications: Current Medications Albuterol/Ipratropium (Duoneb 3 Mg/0.5 Mg (3 Ml) Ud) 3 ml IH Q2H PRN PRN Reason: Shortness of Breath Albuterol/Ipratropium (Duoneb 3 Mg/0.5 Mg (3 Ml) Ud) 3 ml IH [id number] [facility] Last Admin: 08/26/18 13:47 Dose: 3 ml Aspirin (Aspirin Chewable) 81 mg PO DAILY [facility] Last Admin: 08/24/18 09:22 Dose: 81 mg Atorvastatin Calcium (Lipitor) 40 mg PO DAILY [facility] Last Admin: 08/26/18 09:18 Dose: 40 mg Budesonide (Pulmicort Respules) 0.5 mg IH [id number] [facility] Last Admin: 08/26/18 08:14 Dose: 0.5 mg Enoxaparin Sodium (Lovenox) 40 mg SC DAILY [facility]; Protocol Last Admin: 08/24/18 09:22 Dose: 40 mg Folic Acid (Folic Acid) 1 mg PO DAILY [facility] Last Admin: 08/26/18 09:19 Dose: 1 mg Azithromycin 250 mg/ Sodium (Chloride) 250 mls @ 167 mls/hr IVPB DAILY [facility]; Protocol Last Admin: 08/26/18 09:18 Dose: 167 mls/hr Lorazepam (Ativan) 1 mg IVP Q2 PRN; Protocol PRN Reason: Withdrawal Last Admin: 08/25/18 23:17 Dose: 1 mg Methylprednisolone (Solu-Medrol) 20 mg IVP DAILY [facility] Last Admin: 08/26/18 10:07 Dose: 20 mg Multivitamins/Minerals (Therapeutic-M Tab) 1 tab PO 0800 [facility] Last Admin: 08/26/18 09:19 Dose: 1 tab Pantoprazole Sodium (Protonix Inj) 40 mg IVP Q12 [facility] Last Admin: 08/26/18 09:19 Dose: 40 mg Thiamine HCl (Vitamin B1 Tab) 100 mg PO DAILY [facility] Last Admin: 08/26/18 09:19 Dose: 100 mg - Labs Labs: 08/26/18 06:00 08/26/18 06:00 PT 10.2 SECONDS (9.4-12.5) 08/26/18 06:00 INR 0.90 08/26/18 06:00 APTT 26.4 Seconds (26.9-38.3) L 08/23/18 15:24 Attending/Attestation - Attestation I have personally seen and examined this patient.: Yes I have fully participated in the care of the patient.: Yes I have reviewed all pertinent clinical information, including history, physical exam and plan: Yes Notes (Text): 08/26/18 15:58 Attending note; Patient seen and examined with resident. Patient is alert and awake. Complaining of shortness of breath/wheezing. Denies any chest pain. not in Any acute distress. Denies any abdominal pain. Tolerating diet well. Denies any nausea, vomiting Denies any hematemesis or melena. Patient is a 63-year-old male with pmhx of COPD, etOH abuse, PAD, pneumothorax, HLD who presents to the [facility] for chest pain, SOB which he states started 2 days ago. 1. Shortness of breath/acute COPD exacerbation. Improved significantly. Currently off oxygen . Continue DuoNeb and IV Solu-Medrol. 2. Pleuritic chest pain; resolved . Cardiac enzymes 3 negative. 3. Smoking; smoking cessation is strongly advised . 4. alcohol abuse ; Alcohol cessation is strongly advised. 5. Transaminitis; due to alcohol abuse. Hepatitis profile is negative . 6. Hyponatremia and hypochloremia resolved with IV fluid resuscitation . 7. GI bleed; continue IV fluids. Continue IV Protonix. Stool for occult blood is positive. GI evaluation appreciated. Hemoglobin dropped from 10.6-8.9. NPO past midnight for EGD. Physical therapy evaluation appreciated. Will discharge home tomorrow if clinically stable after EGD. Upon discharge the patient will follow up with PMD Dr. Gilbert. 08/26/18 16:00
[2018-08-27] MEDS: Albuterol-Ipratrop 3 mg / 0.5 (3 ml) UD IH SCH ×4 (01:02→19:47)
[2018-08-27 07:27] LABS: EOS % 0.2 % (1.5-5.0); HEMOGLOBIN 8.6 g/dL (14.0-18.0); LYMPH # 1.7 (1.2-3.4); LYMPH % 26.2 % (22.0-35.0); MEAN CELL VOLUME 99.2 fl (80.0-105.0); MEAN CORPUSCULAR HEMOGLOBIN 32.5 pg (25.0-35.0); MEAN CORPUSCULAR HGB CONC 32.7 g/dl (31.0-37.0); MEAN PLATELET VOLUME 10.5 fl (7.0-11.0); MONO # 0.6 (0.1-0.6); MONO % 9.7 % (1.0-6.0); RBC 2.65 10^6/uL (3.5-6.1); RED CELL DISTRIBUTION WIDTH 16.1 % (11.5-14.5); WHITE BLOOD COUNT 6.6 10^3/uL (4.5-11.0)
[2018-08-27 07:42] LABS: ALB/GLOB RATIO 1.4 (1.1-1.8); ALBUMIN 2.7 g/dL (3.0-4.8); ALT/SGPT 84 U/L (7-56); AST/SGOT 48 U/L (17-59); BLOOD UREA NITROGEN 13 mg/dL (7-21); CALCIUM 7.6 mg/dL (8.4-10.5); GFR NON-AFRICAN AMERICAN > 60
[2018-08-27] MEDS ORDERED: Potassium Chloride 20 mEq ER Tab PO ONE (08:05)
[2018-08-27] MEDS: Budesonide 0.5 mg/2 ml Inhal Susp UD IH SCH ×2 (08:11→19:47)
[2018-08-27] MEDS: MethylPREDNISolone 40 mg Vial IVP SCH ×3 (09:28→21:44)
[2018-08-27] MEDS: Multivitamin With Minerals Tab PO SCH (09:28)
[2018-08-27] MEDS: Azithromycin 250 MG in Sodium Chloride 0.9% 250 ML IVPB SCH (09:30)
[2018-08-27] MEDS ORDERED: Potassium Chloride 20 mEq ER Tab PO STA (09:35)
--- NOTE | 2018-08-27 12:55 | CP.PCM.PN ---
<Kiesha Bond - Last Filed: 08/27/18 12:49> Subjective - Date & Time of Evaluation Date of Evaluation: 08/27/18 Time of Evaluation: 08:30 - Subjective Subjective: INTERNAL MEDICINE PROGRESS NOTE FOR DR. DENTON Bond PGY1 Pt seen and examined at bedside this am. No acute events overnight. Pt reports he is hungry, however is denying complaints Objective - Vital Signs/Intake and Output Vital Signs (last 24 hours): Temp Pulse Resp BP Pulse Ox 98.1 F 63 17 98/59 L 98 08/27/18 08:37 08/27/18 08:37 08/27/18 08:37 08/27/18 08:37 08/27/18 08:37 Intake and Output: 08/27/18 08/27/18 06:59 18:59 Intake Total 1600 Output Total 1300 Balance 300 - Medications Medications: Current Medications Albuterol/Ipratropium (Duoneb 3 Mg/0.5 Mg (3 Ml) Ud) 3 ml IH Q2H PRN PRN Reason: Shortness of Breath Albuterol/Ipratropium (Duoneb 3 Mg/0.5 Mg (3 Ml) Ud) 3 ml IH [id number] [facility] Last Admin: 08/27/18 08:10 Dose: Not Given Aspirin (Aspirin Chewable) 81 mg PO DAILY [facility] Last Admin: 08/24/18 09:22 Dose: 81 mg Atorvastatin Calcium (Lipitor) 40 mg PO DAILY [facility] Last Admin: 08/27/18 09:28 Dose: 40 mg Budesonide (Pulmicort Respules) 0.5 mg IH [id number] [facility] Last Admin: 08/27/18 08:11 Dose: Not Given Enoxaparin Sodium (Lovenox) 40 mg SC DAILY [facility]; Protocol Last Admin: 08/24/18 09:22 Dose: 40 mg Folic Acid (Folic Acid) 1 mg PO DAILY [facility] Last Admin: 08/27/18 09:28 Dose: 1 mg Hydrocortisone (Anusol-Hc) 25 mg RC BID [facility] Last Admin: 08/27/18 10:51 Dose: Not Given Lorazepam (Ativan) 1 mg IVP Q4 [facility]; Protocol Last Admin: 08/27/18 12:35 Dose: 1 mg Methylprednisolone (Solu-Medrol) 20 mg IVP DAILY [facility] Last Admin: 08/27/18 09:28 Dose: 20 mg Multivitamins/Minerals (Therapeutic-M Tab) 1 tab PO 0800 [facility] Last Admin: 08/27/18 09:28 Dose: 1 tab Pantoprazole Sodium (Protonix Inj) 40 mg IVP Q12 [facility] Last Admin: 08/27/18 09:28 Dose: 40 mg Thiamine HCl (Vitamin B1 Tab) 100 mg PO DAILY [facility] Last Admin: 08/27/18 09:28 Dose: 100 mg - Labs Labs: 08/27/18 05:30 08/27/18 05:30 PT 10.2 SECONDS (9.4-12.5) 08/26/18 06:00 INR 0.90 08/26/18 06:00 APTT 26.4 Seconds (26.9-38.3) L 08/23/18 15:24 - Constitutional Appears: Non-toxic, Cachectic - Head Exam Head Exam: ATRAUMATIC, NORMAL INSPECTION, NORMOCEPHALIC - Eye Exam Eye Exam: EOMI, Normal appearance, PERRL - Respiratory Exam Respiratory Exam: Minimal wheezes, NORMAL BREATHING PATTERN. absent: Rales, Rhonchi, Respiratory Distress, Stridor - Cardiovascular Exam Cardiovascular Exam: RRR, +S1, +S2. absent: Gallop, Rubs - GI/Abdominal Exam GI & Abdominal Exam: Normal Bowel Sounds, Soft. absent: Distended, Firm, Guarding, Tenderness - Extremities Exam Extremities exam: Positive for: normal capillary refill, pedal pulses present - Back Exam Back exam: NORMAL INSPECTION. absent: CVA tenderness (L), CVA tenderness (R) - Neurological Exam Neurological exam: Alert, Oriented x3 - Psychiatric Exam Psychiatric exam: Normal Affect, Normal Mood - Skin Skin Exam: Dry, Normal Color, Warm Assessment and Plan - Assessment and Plan (Free Text) Assessment: 63 yo M with pmhx of COPD, etOH abuse, b/l LE ulcers, PAD, pneumothorax, HLD who presents to the [facility] for chest pain, SOB. Hospital stay complicated by dark tarry stool, decreasing hemoglobin, + FOBT. Plan: GI bleed - NPO this with scheduled EGD by GI team to eval for PUD w/ NSAID use, r/o other pathology - Pt previously complained of dark tarry stool. FOBT (+). Hgb has progressively declined. Normocytic anemia. He is hemodynamically stable - Continue protonix 40 IV BID COPD exacerbation: - Pt still has wheezing, however improved today - CXR: NAD - continue duonebs prn/sarita, budesonide, - decrease solu medrol 20mg daily - continue empiric azithromycin EtOH w/d - not currently withdrawing today. CIWA overnight: 4,0. Received prn dose yesterday evening - continue CIWA protocol - continue oral thiamine, multivitamin, folic acid Chest pain r/o ACS: - EKG NSR @ 92, Trops (-) x3, - aspirin on hold d/t GI bleed - continue atorvastatin 40 - A1c - 5.8 - Echo 05/26 - LVEF 55-60 Hx of PAD: - ASA on hold HLD: - Cont lipitor DVT/GI PPx: SCD/protonix. Lovenox on hold d/t GIB PT recs: Home w/ services Case reviewed with attending physician, Dr. Denton Bond PGY1 <Lily Chawla R - Last Filed: 08/27/18 15:09> Objective - Vital Signs/Intake and Output Vital Signs (last 24 hours): Temp Pulse Resp BP Pulse Ox 97.8 F 71 19 108/62 87 L 08/27/18 12:55 08/27/18 12:55 08/27/18 12:55 08/27/18 12:55 08/27/18 12:55 Intake and Output: 08/27/18 08/27/18 06:59 18:59 Intake Total 1600 Output Total 1300 Balance 300 - Medications Medications: Current Medications Albuterol/Ipratropium (Duoneb 3 Mg/0.5 Mg (3 Ml) Ud) 3 ml IH Q2H PRN PRN Reason: Shortness of Breath Albuterol/Ipratropium (Duoneb 3 Mg/0.5 Mg (3 Ml) Ud) 3 ml IH [id number] [facility] Last Admin: 08/27/18 13:15 Dose: Not Given Aspirin (Aspirin Chewable) 81 mg PO DAILY [facility] Last Admin: 08/24/18 09:22 Dose: 81 mg Atorvastatin Calcium (Lipitor) 40 mg PO DAILY [facility] Last Admin: 08/27/18 09:28 Dose: 40 mg Budesonide (Pulmicort Respules) 0.5 mg IH [id number] [facility] Last Admin: 08/27/18 08:11 Dose: Not Given Enoxaparin Sodium (Lovenox) 40 mg SC DAILY [facility]; Protocol Last Admin: 08/24/18 09:22 Dose: 40 mg Folic Acid (Folic Acid) 1 mg PO DAILY [facility] Last Admin: 08/27/18 09:28 Dose: 1 mg Hydrocortisone (Anusol-Hc) 25 mg RC BID [facility] Last Admin: 08/27/18 10:51 Dose: Not Given Lorazepam (Ativan) 1 mg IVP Q4 [facility]; Protocol Last Admin: 08/27/18 12:35 Dose: 1 mg Methylprednisolone (Solu-Medrol) 20 mg IVP Q12 [facility] Last Admin: 08/27/18 14:17 Dose: 20 mg Multivitamins/Minerals (Therapeutic-M Tab) 1 tab PO 0800 [facility] Last Admin: 08/27/18 09:28 Dose: 1 tab Pantoprazole Sodium (Protonix Inj) 40 mg IVP Q12 [facility] Last Admin: 08/27/18 09:28 Dose: 40 mg Thiamine HCl (Vitamin B1 Tab) 100 mg PO DAILY [facility] Last Admin: 08/27/18 09:28 Dose: 100 mg - Labs Labs: 08/27/18 05:30 08/27/18 05:30 PT 10.2 SECONDS (9.4-12.5) 08/26/18 06:00 INR 0.90 08/26/18 06:00 APTT 26.4 Seconds (26.9-38.3) L 08/23/18 15:24 Attending/Attestation - Attestation I have personally seen and examined this patient.: Yes I have fully participated in the care of the patient.: Yes I have reviewed all pertinent clinical information, including history, physical exam and plan: Yes Notes (Text): Patient seen and examined by me with resident at approximately 9:35AM on 08/27/18. Case including HPI, physical exam, and assessment and plan discussed with resident. Agree with above with following additions/corrections. Patient is a 63 year old male with past medical history significant for COPD, ETOH abuse, tobacco abuse, bilateral lower extremity ulcers, PAD, pneumothorax, and hyperlipidemia that presented to the emergency room with chest pain and shortness of breath. Patient states that he is feeling ok. States he is hungry and just wants to eat. Patient states that if he can't eat, he wants to sleep. Patient denies any chest pain or palpitations. States that shortness of breath has improved. States he feels a little short of breath if he does a lot of activity. No nausea, vomiting, or abdominal pain. No fevers or chills. No headaches or dizziness. No dysuria. Patient is having bowel movements. Physical exam: General: Awake and alert lying in bed in no acute distress HEENT: Normocephalic, atraumatic. Extraocular muscles intact. Pupils equal and reactive, no scleral icterus. Oropharynx pink and moist. Poor dentition. Neck supple. Cardiovascular: Regular rhythm. Normal S1 and S2. No murmurs, rubs, or gallops appreciated Pulmonary: Normal respiratory effort. Decreased breath sounds. No rhonchi, rales, or wheezing appreciated Gastrointestinal: Soft, nondistended. Nontender. Positive bowel sounds all 4 quadrants. No guarding. Musculoskeletal: Moves all extremities. No calf tenderness. No edema. Central nervous system: AAO x3. No focal deficits appreciated. Dermatologic: Skin warm and dry. Assessment and plan: Patient is a 63 year old male with past medical history significant for COPD, ETOH abuse, tobacco abuse, bilateral lower extremity ulcers, PAD, pneumothorax, and hyperlipidemia that presented to the emergency room with chest pain and shortness of breath. 1. COPD exacerbation. Continue nebulizer treatments, continue solu-medrol. Continue Pulmicort. Continue O2 via nasal cannula as needed. Counseled on tobacco cessation. 2. Anemia. H&H downtrending. Stool for occult blood positive. Continue IV protonix. GI recommendations appreciated. Patient for EGD today. 3. Hypokalemia. Repleted. Follow up repeat labs in AM 4. Chest pain. Resolved. ACS ruled out. Pleuritic pain. Troponins within normal limits. 5. Alcohol abuse and withdrawal. S/P scheduled ativan. Continue CIWA protocol. Continue Ativan prn. Continue thiamine, folic acid, and multivitamin. Counseled at length on alcohol cessation. 6. Transaminitis. Likely secondary to alcohol abuse. Downtrending. Continue to monitor. Hepatitis panel negative. 7. PAD. Continue lipitor. ASA on hold for possible GI bleed. 8. Tobacco abuse. Counseled at length on cessation. Case was discussed in detail with the patient regarding current diagnosis and treatment plan. All questions answered.
--- NOTE | 2018-08-27 13:28 | CP.PCM.PN ---
<Charlie Mckeon - Last Filed: 08/27/18 13:24> Subjective - Date & Time of Evaluation Date of Evaluation: 08/27/18 Time of Evaluation: 09:00 - Subjective Subjective: PGY4 GI fellow progress note Patient is lying in bed when seen this morning. States he is eager for EGD and would like a diet TYLER. Denied any abdominal pain, chest pain, shortness of breath or signs of bleeding. Five-point review of systems negative other than stated above Objective - Vital Signs/Intake and Output Vital Signs (last 24 hours): Temp Pulse Resp BP Pulse Ox 97.8 F 71 19 108/62 87 L 08/27/18 12:55 08/27/18 12:55 08/27/18 12:55 08/27/18 12:55 08/27/18 12:55 Intake and Output: 08/27/18 08/27/18 06:59 18:59 Intake Total 1600 Output Total 1300 Balance 300 - Medications Medications: Current Medications Albuterol/Ipratropium (Duoneb 3 Mg/0.5 Mg (3 Ml) Ud) 3 ml IH Q2H PRN PRN Reason: Shortness of Breath Albuterol/Ipratropium (Duoneb 3 Mg/0.5 Mg (3 Ml) Ud) 3 ml IH [id number] Last Admin: 08/27/18 13:15 Dose: Not Given Aspirin (Aspirin Chewable) 81 mg PO DAILY [facility] Last Admin: 08/24/18 09:22 Dose: 81 mg Atorvastatin Calcium (Lipitor) 40 mg PO DAILY [facility] Last Admin: 08/27/18 09:28 Dose: 40 mg Budesonide (Pulmicort Respules) 0.5 mg IH [id number] [facility] Last Admin: 08/27/18 08:11 Dose: Not Given Enoxaparin Sodium (Lovenox) 40 mg SC DAILY [facility]; Protocol Last Admin: 08/24/18 09:22 Dose: 40 mg Folic Acid (Folic Acid) 1 mg PO DAILY [facility] Last Admin: 08/27/18 09:28 Dose: 1 mg Hydrocortisone (Anusol-Hc) 25 mg RC BID [facility] Last Admin: 08/27/18 10:51 Dose: Not Given Lorazepam (Ativan) 1 mg IVP Q4 [facility]; Protocol Last Admin: 04/22/19 12:35 Dose: 1 mg Methylprednisolone (Solu-Medrol) 20 mg IVP DAILY [facility] Last Admin: 08/27/18 09:28 Dose: 20 mg Multivitamins/Minerals (Therapeutic-M Tab) 1 tab PO 0800 [facility] Last Admin: 08/27/18 09:28 Dose: 1 tab Pantoprazole Sodium (Protonix Inj) 40 mg IVP Q12 [facility] Last Admin: 08/27/18 09:28 Dose: 40 mg Thiamine HCl (Vitamin B1 Tab) 100 mg PO DAILY [facility] Last Admin: 08/27/18 09:28 Dose: 100 mg - Labs Labs: 08/27/18 05:30 08/27/18 05:30 PT 10.2 SECONDS (9.4-12.5) 08/26/18 06:00 INR 0.90 08/26/18 06:00 APTT 26.4 Seconds (26.9-38.3) L 08/23/18 15:24 - Constitutional Appears: No Acute Distress, Chronically Ill - Head Exam Head Exam: ATRAUMATIC, NORMAL INSPECTION - Eye Exam Eye Exam: EOMI. absent: Scleral icterus - ENT Exam ENT Exam: Mucous Membranes Dry. absent: Mucous Membranes Moist - GI/Abdominal Exam GI & Abdominal Exam: Soft, Normal Bowel Sounds. absent: Bruit, Distended, Firm, Guarding, Rigid, Tenderness, Mass, Organomegaly, Pulsatile Mass, Rebound Assessment and Plan - Assessment and Plan (Free Text) Assessment: 63 year old male with PMH of COPD, prior spontaneous left pneumothorax 04/2017, alcohol abuse, PAD complicated by leg ulcers/right toe amputation, and HLD presenting with chest pain and shortness of breath. Active treatment of COPD exacerbation. GI consultation for anemia. No prior EGD or colonoscopy. Iron 67, ferritin 128 B12/folate normal. Viral hep negative. LFTs trending down in setting of alcohol abuse Plan: -EGD for today canceled due to hypoxia prior to endoscopy. Recommend chest x-ray and further hypoxia evaluation per primary team. -CT A/P PO/IV contrast-no acute pathology -PPI BID -counselled on alcohol cessation -on [facility] protocol -will follow clinical course Patient seen and examined with Dr. Varma. Please see attestation for further recommendations/changes Portions of this note has been dictated but not necessarily proofread <Avani,Jeimy - Last Filed: 08/27/18 13:35> Objective - Vital Signs/Intake and Output Vital Signs (last 24 hours): Temp Pulse Resp BP Pulse Ox 97.8 F 71 19 108/62 87 L 08/27/18 12:55 08/27/18 12:55 08/27/18 12:55 08/27/18 12:55 08/27/18 12:55 Intake and Output: 08/27/18 08/27/18 06:59 18:59 Intake Total 1600 Output Total 1300 Balance 300 - Medications Medications: Current Medications Albuterol/Ipratropium (Duoneb 3 Mg/0.5 Mg (3 Ml) Ud) 3 ml IH Q2H PRN PRN Reason: Shortness of Breath Albuterol/Ipratropium (Duoneb 3 Mg/0.5 Mg (3 Ml) Ud) 3 ml IH [id number] [facility] Last Admin: 08/27/18 13:15 Dose: Not Given Aspirin (Aspirin Chewable) 81 mg PO DAILY [facility] Last Admin: 08/24/18 09:22 Dose: 81 mg Atorvastatin Calcium (Lipitor) 40 mg PO DAILY [facility] Last Admin: 08/27/18 09:28 Dose: 40 mg Budesonide (Pulmicort Respules) 0.5 mg IH [id number] [facility] Last Admin: 08/27/18 08:11 Dose: Not Given Enoxaparin Sodium (Lovenox) 40 mg SC DAILY [facility]; Protocol Last Admin: 08/24/18 09:22 Dose: 40 mg Folic Acid (Folic Acid) 1 mg PO DAILY [facility] Last Admin: 08/27/18 09:28 Dose: 1 mg Hydrocortisone (Anusol-Hc) 25 mg RC BID [facility] Last Admin: 08/27/18 10:51 Dose: Not Given Lorazepam (Ativan) 1 mg IVP Q4 [facility]; Protocol Last Admin: 08/27/18 12:35 Dose: 1 mg Methylprednisolone (Solu-Medrol) 20 mg IVP DAILY [facility] Last Admin: 08/27/18 09:28 Dose: 20 mg Multivitamins/Minerals (Therapeutic-M Tab) 1 tab PO 0800 [facility] Last Admin: 08/27/18 09:28 Dose: 1 tab Pantoprazole Sodium (Protonix Inj) 40 mg IVP Q12 [facility] Last Admin: 08/27/18 09:28 Dose: 40 mg Thiamine HCl (Vitamin B1 Tab) 100 mg PO DAILY [facility] Last Admin: 08/27/18 09:28 Dose: 100 mg - Labs Labs: 08/27/18 05:30 08/27/18 05:30 PT 10.2 SECONDS (9.4-12.5) 08/26/18 06:00 INR 0.90 08/26/18 06:00 APTT 26.4 Seconds (26.9-38.3) L 08/23/18 15:24 Attending/Attestation - Attestation I have personally seen and examined this patient.: Yes I have fully participated in the care of the patient.: Yes I have reviewed all pertinent clinical information, including history, physical exam and plan: Yes Notes (Text): 08/27/18 13:31 I have seen and examined the pt with the GI fellow. Pt doing well overnight and is hungry. Hb with slight drop, but with brown BMs and otherwise no evidence of GIB. However, noted to be more hypoxic than baseline today though he denies any SOB. Last CXR was 08/23/[address] abd/pelvis showed no evidence of consolidation, but only improved to 93-94% with 3L NC. Will cancel today's case to recommend further medical optimization (i.e. CXR and possible adjustment of meds) and reschedule EGD (Mon or ). Discussed with primary team. 08/27/18 13:32
--- NOTE | 2018-08-27 14:37 | RAD ---
Date of service: 08/27/2018 PROCEDURE: CHEST RADIOGRAPH, 1 VIEW HISTORY: sob, desaturation COMPARISON: 08/23/2018 FINDINGS: LUNGS: Prominent interstitial markings unchanged. No focal consolidation PLEURA: No pneumothorax or pleural fluid seen. CARDIOVASCULAR: No aortic atherosclerotic calcification present. Normal. OSSEOUS STRUCTURES: No significant abnormalities. VISUALIZED UPPER ABDOMEN: Normal. OTHER FINDINGS: None. IMPRESSION: Prominent interstitial markings unchanged. No focal consolidation
[2018-08-27 17:03] LABS: ARTERIAL BLOOD GAS HCO3 23.4 mmol/L (21-28); ARTERIAL BLOOD GAS O2 SAT 96.7 % (95-98); ARTERIAL BLOOD GAS PCO2 36 mm/Hg (35-45); ARTERIAL BLOOD GAS PH 7.42 (7.35-7.45); ARTERIAL BLOOD GAS TCO2 24.5 mmol.L (22-28)
[2018-08-27] MEDS: levoFLOXacin 500 mg in D5W 500 MG/100 ML BAG IVPB SCH (17:56)
[2018-08-28] MEDS: Albuterol-Ipratrop 3 mg / 0.5 (3 ml) UD IH SCH ×4 (01:29→19:14)
--- NOTE | 2018-08-28 03:09 | CON ---
DATE: 08/27/2018 HISTORY OF PRESENT ILLNESS: The patient a 63-year-old gentleman with history of COPD, alcohol abuse, bilateral lower extremity ulcers, peripheral vascular disease, pneumothorax (with lung re-expansion about 1 year ago), hyperlipidemia, who presented to [facility] on 08/23/2018 with some left-sided chest pain that did not radiate and was not related to exertion. The pain was of acute onset and appeared in the morning when he woke up at the day of admission. He reports that he always has shortness of breath and dyspnea on exertion, but that has become increasingly worse and he was having cough (productive of greenish sputum). No history of fever, chills, headache, palpitation, abdominal pain, nausea, vomiting, diarrhea, or dysuria. The patient was treated in the hospital for COPD exacerbation with steroids, bronchodilators, and antibiotics. He was found to have ixzu-me-[id number] anemia and decision was made to proceed with upper endoscopy to rule out peptic ulcer disease. The patient was scheduled to have procedure today. However, he became hypoxemic on room air and even at 3 liters per minute of nasal cannula oxygen supplementation resulted only in modest increase in oxygen saturation. Procedure was aborted and the patient was transferred back to third floor (med/surg). Pulmonary consult was called for further management and monitoring. Upon evaluation at bedside, the patient's oxygen saturation, however, is 95%. ABG is pending. PAST MEDICAL HISTORY: COPD, alcohol abuse, bilateral lower extremity ulcers, peripheral vascular disease, pneumothorax, hyperlipidemia. 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 MEDICATIONS AT HOME: The patient admits to taking Tylenol only. MEDICATIONS IN THE HOSPITAL: DuoNeb p.r.n., DuoNeb every 6 hours, aspirin, Lipitor, budesonide, Lovenox 40 mg subcutaneously daily (was on hold since 3 days ago, restarted today), folic acid, levofloxacin (started today), Ativan q. 4h., Solu-Medrol 20 mg IV q.12h., Protonix 40 mg IV q.12h., thiamine. REVIEW OF SYSTEMS: Reveals 12 organ systems other than mentioned in history of present illness is negative. FAMILY HISTORY: Noncontributory. ALLERGIES: STRAWBERRY, PEANUT, PEANUT OIL, PENICILLINS. SOCIAL HISTORY: The patient is active smoker. He smokes about 2 packs a day. History of alcohol abuse. No recreational drug abuse. PHYSICAL EXAMINATION: VITAL SIGNS: Blood pressure 104/64, oxygen saturation 97% on room air, respiratory rate 20, temperature 98, and heart rate 73. HEAD AND NECK: Atraumatic. LUNGS: Decreased breath sounds bilaterally. No wheezing, no crackles. HEART: Regular rate and rhythm. S1, S2 normal. ABDOMEN: Soft, nontender, nondistended. MUSCULOSKELETAL: No C/C/E. NEURO: The patient moves all extremities spontaneously. SKIN: Moist. PSYCH: The patient is alert, awake, and oriented x3. LABORATORY DATA: WBC 6.6, hemoglobin 8.6, platelet count 206. Sodium 133, potassium 3.3, chloride 96, carbon dioxide 34, BUN 13, creatinine 0.6, glucose 95, AST 48, ALT 84, total bilirubin less than 0.1. Chest x-ray showed some emphysematous changes, increased interstitial markings, no discreet infiltrate or pulmonary edema. Echocardiogram performed at the end of May this year showed no severe/significant left ventricular or right ventricular dysfunction. ASSESSMENT AND PLAN: This is a 63-year-old gentleman with transient drop in oxygen saturation on room air in periprocedural period. It does not appear that the patient was given any type of sedation prior to transitory episode of hypoxemia occurred. At present time, I agree with bronchodilators, steroid taper, and antibiotics. Chest x-ray did not show any distinct infiltrate, pneumothorax, or fluid overload. Echocardiogram performed few months ago also did not show significant left or right ventricular dysfunction. I will order proBNP, procalcitonin, and ABG to better assess gas exchange and ventilatory status. I will order D-dimers and venous Doppler of lower extremities. I will restart Lovenox subcutaneously for deep vein thrombosis prophylaxis. The patient is protecting his airway, is alert, awake and oriented x3, comfortable. His hypoxemia resolved. We will continue target euvolemia, euglycemia, normothermia and oxygen saturation more than 90%. We will continue with deep vein thrombosis and gastrointestinal prophylaxis. Addendum: D-dimers are elevated-->venous doppler of LE and V/Q scan-neg/low prob respectively. ABG-low normoxia on room air (erroneosly labeled as if pt on 35% fi02) ccm time 40 min Ariel Murillo MD [facility] # [id number] CATY
[2018-08-28 06:42] LABS: HEMOGLOBIN 8.7 g/dL (14.0-18.0); LYMPH # 0.7 (1.2-3.4); MEAN CORPUSCULAR HEMOGLOBIN 32.7 pg (25.0-35.0); MEAN CORPUSCULAR HGB CONC 32.7 g/dl (31.0-37.0); MEAN PLATELET VOLUME 10.4 fl (7.0-11.0); MONO # 0.6 (0.1-0.6); MONO % 10.4 % (1.0-6.0); RBC 2.66 10^6/uL (3.5-6.1); RED CELL DISTRIBUTION WIDTH 16.2 % (11.5-14.5)
[2018-08-28 07:39] LABS: ALB/GLOB RATIO 1.5 (1.1-1.8); ALBUMIN 2.8 g/dL (3.0-4.8); ALT/SGPT 69 U/L (7-56); AST/SGOT 33 U/L (17-59); BLOOD UREA NITROGEN 18 mg/dL (7-21); CALCIUM 7.9 mg/dL (8.4-10.5); GFR NON-AFRICAN AMERICAN > 60
[2018-08-28] MEDS: Budesonide 0.5 mg/2 ml Inhal Susp UD IH SCH ×2 (07:59→19:15)
[2018-08-28] MEDS: Multivitamin With Minerals Tab PO SCH (08:05)
--- NOTE | 2018-08-28 08:32 | NM ---
Date of service: 08/27/2018 COMPARISON: Chest x-ray same day TECHNIQUE: 40.3 mCi technetium 99-m DTPA aerosol. 5.06 mCI technetium 99-m MAA administered intravenously. FINDINGS: VENTILATION COMPONENT: Normal. PERFUSION COMPONENT: Normal. IMPRESSION: Lowprobability ventilation perfusion scan for pulmonary embolism.
--- NOTE | 2018-08-28 09:11 | US ---
HISTORY: Leg pain and swelling. Evaluate for DVT PHYSICIAN(S): Buck Guzman MD. TECHNIQUE: Duplex sonography and color-flow Doppler with graded compression were used to evaluate the deep venous systems of both lower extremities. FINDINGS: The visualized deep venous systems of both lower extremities are sonographically normal and compressible. Normal wave forms and augmentation are seen. There is no sonographic evidence for deep venous thrombosis in the visualized segments of both lower extremities. IMPRESSION: No sonographic evidence for deep venous thrombosis in the visualized segments of both lower extremities.
[2018-08-28] MEDS: levoFLOXacin 500 mg in D5W 500 MG/100 ML BAG IVPB SCH (09:13)
[2018-08-28] MEDS: MethylPREDNISolone 40 mg Vial IVP SCH (09:14)
[2018-08-28] MEDS: Enoxaparin 40 mg Syringe SC SCH (09:16)
[2018-08-28] MEDS: Insulin Lispro (humaLOG) LOW Coverage SC SCH ×3 (11:29→16:54)
[2018-08-28] MEDS: Sodium Chloride 0.9% 1,000 ML IV SCH (11:38)
--- NOTE | 2018-08-28 11:38 | CP.PCM.PN ---
<Karla Bañuelos - Last Filed: 08/28/18 11:34> Subjective - Date & Time of Evaluation Date of Evaluation: 08/28/18 Time of Evaluation: 11:35 - Subjective Subjective: Karla Bañuelos, PGY-1, Internal Medicine Progress Note for Dr. Chawla Patient seen and evaluated at bedside. Patient had no acute overnight events. Patient today reports improved mild midsternal chest pain, shortness of breath, cough with no sputum, right lower quadrant pain with hernia, 1 episode of nonbloody diarrhea last night. He also reports dysuria but no hematuria. 12- point ROS was unmarkable except for what was mentioned above. Objective - Vital Signs/Intake and Output Vital Signs (last 24 hours): Temp Pulse Resp BP Pulse Ox 97.6 F 66 18 99/63 L 96 08/28/18 08:00 08/28/18 08:00 08/28/18 08:00 08/28/18 08:00 08/28/18 08:00 Intake and Output: 08/28/18 08/28/18 06:59 18:59 Intake Total 1140 Output Total 1400 Balance -260 - Medications Medications: Current Medications Albuterol/Ipratropium (Duoneb 3 Mg/0.5 Mg (3 Ml) Ud) 3 ml IH Q2H PRN PRN Reason: Shortness of Breath Albuterol/Ipratropium (Duoneb 3 Mg/0.5 Mg (3 Ml) Ud) 3 ml IH [id number] [facility] Last Admin: 08/28/18 07:59 Dose: Not Given Aspirin (Aspirin Chewable) 81 mg PO DAILY [facility] Last Admin: 08/24/18 09:22 Dose: 81 mg Atorvastatin Calcium (Lipitor) 40 mg PO DAILY [facility] Last Admin: 08/28/18 09:16 Dose: 40 mg Budesonide (Pulmicort Respules) 0.5 mg IH [id number] [facility] Last Admin: 08/28/18 07:59 Dose: Not Given Enoxaparin Sodium (Lovenox) 40 mg SC DAILY [facility]; Protocol Last Admin: 08/28/18 09:16 Dose: 40 mg Folic Acid (Folic Acid) 1 mg PO DAILY [facility] Last Admin: 08/28/18 09:16 Dose: 1 mg Hydrocortisone (Anusol-Hc) 25 mg RC BID [facility] Last Admin: 08/28/18 09:16 Dose: Not Given Levofloxacin/Dextrose (Levaquin 500mg) 500 mg in 100 mls @ 100 mls/hr IVPB DAILY [facility]; Protocol Last Admin: 08/28/18 09:13 Dose: 100 mls/hr Sodium Chloride (Sodium Chloride 0.9%) 1,000 mls @ 100 mls/hr IV .Q10H [facility] Insulin Human Lispro (Humalog Low) 0 units SC ACHS [facility]; Protocol Last Admin: 08/28/18 11:29 Dose: Not Given Lorazepam (Ativan) 1 mg IVP Q4 [facility]; Protocol Last Admin: 08/28/18 09:04 Dose: 1 mg Methylprednisolone (Solu-Medrol) 20 mg IVP Q12 [facility] Last Admin: 08/28/18 09:14 Dose: 20 mg Multivitamins/Minerals (Therapeutic-M Tab) 1 tab PO 0800 [facility] Last Admin: 08/28/18 08:05 Dose: 1 tab Pantoprazole Sodium (Protonix Inj) 40 mg IVP Q12 [facility] Last Admin: 08/28/18 09:13 Dose: 40 mg Thiamine HCl (Vitamin B1 Tab) 100 mg PO DAILY [facility] Last Admin: 08/28/18 09:16 Dose: 100 mg - Labs Labs: 08/28/18 06:20 08/28/18 06:20 PT 10.2 SECONDS (9.4-12.5) 08/26/18 06:00 INR 0.90 08/26/18 06:00 APTT 26.4 Seconds (26.9-38.3) L 08/23/18 15:24 - Constitutional Appears: Well, Non-toxic, No Acute Distress - Head Exam Head Exam: ATRAUMATIC, NORMAL INSPECTION, NORMOCEPHALIC - Eye Exam Eye Exam: EOMI, PERRL - Respiratory Exam Respiratory Exam: Clear to Ausculation Bilateral, NORMAL BREATHING PATTERN - Cardiovascular Exam Cardiovascular Exam: REGULAR RHYTHM, RRR, +S1, +S2 - GI/Abdominal Exam GI & Abdominal Exam: Soft, Normal Bowel Sounds. absent: Tenderness - Extremities Exam Extremities Exam: Full ROM, Normal Capillary Refill, Normal Inspection - Neurological Exam Neurological Exam: Alert, Awake, CN II-XII Intact, Oriented x3 Additional comments: diffuse tremors - Psychiatric Exam Psychiatric exam: Agitated - Skin Skin Exam: Dry, Intact, Normal Color Assessment and Plan - Assessment and Plan (Free Text) Assessment: 63 year old male with past medical history of COPD, alcohol abuse, peripheral artery disease, pneumothorax, hyperlipidemia initially presented for chest pain with ACS rule out and COPD exacerbation which have since resolved. He recently had a black tarry stool and has chronic NSAID use, and as a result, he will be evaluated for upper GI bleed. Plan: Chronic NSAID use with suspected upper GI bleed -FOBT was positive -Scheduled for endoscopy tomorrow for evaluation of etiology of upper GI bleed -Patient should be NPO past midnight -Hemoglobin has been decreasing throughout this admission from 10s to 8s. Continue to monitor -Continue protonix 40 mg IV BID -Held aspirin Shortness of breath 2/2 to PE vs. COPD exacerbation -V/Q scan shows low probability of PE -Lower extremity ultrasound shows no evidence of DVT -As a result, doubt PE as etiology for shortness of breath. COPD exacerbation -Patient currently is not wheezing -Continue with duonebs scheduled and PRN, pulmicort, levaquin -Reduced solumedrol to 20 mg daily Alcohol Withdrawal -Last CIWA: 1 -Continue with ativan 1 mg Q4 PRN -Continue with thiamine, MVI, folic acid Chest pain -Likely 2/2 to pleuritic pain -EKG showed NSR and troponinx3 was negative -Aspirin currently held due to suspected upper GI bleed Peripheral Artery Disease -Continue lipitor -Aspirin held for possible GI bleed Tobacco abuse -Counseled patient at length on cessation Hyperlipidemia -Continue with lipitor Patient plan discussed with Dr. Chawla. <Lily Chawla - Last Filed: 08/29/18 07:55> Objective - Vital Signs/Intake and Output Vital Signs (last 24 hours): Temp Pulse Resp BP Pulse Ox 98.4 F 74 19 117/87 95 08/28/18 16:55 08/28/18 16:55 08/28/18 16:55 08/28/18 16:55 08/28/18 16:55 - Medications Medications: Current Medications Albuterol/Ipratropium (Duoneb 3 Mg/0.5 Mg (3 Ml) Ud) 3 ml IH Q2H PRN PRN Reason: Shortness of Breath Albuterol/Ipratropium (Duoneb 3 Mg/0.5 Mg (3 Ml) Ud) 3 ml IH [id number] [facility] Last Admin: 08/29/18 02:45 Dose: Not Given Aspirin (Aspirin Chewable) 81 mg PO DAILY [facility] Last Admin: 08/24/18 09:22 Dose: 81 mg Atorvastatin Calcium (Lipitor) 40 mg PO DAILY [facility] Last Admin: 08/28/18 09:16 Dose: 40 mg Budesonide (Pulmicort Respules) 0.5 mg IH [id number] [facility] Last Admin: 08/28/18 19:15 Dose: Not Given Enoxaparin Sodium (Lovenox) 40 mg SC DAILY [facility]; Protocol Last Admin: 08/28/18 09:16 Dose: 40 mg Folic Acid (Folic Acid) 1 mg PO DAILY [facility] Last Admin: 08/28/18 09:16 Dose: 1 mg Hydrocortisone (Anusol-Hc) 25 mg RC BID [facility] Last Admin: 08/28/18 17:00 Dose: Not Given Levofloxacin/Dextrose (Levaquin 500mg) 500 mg in 100 mls @ 100 mls/hr IVPB DAILY [facility]; Protocol Last Admin: 08/28/18 09:13 Dose: 100 mls/hr Sodium Chloride (Sodium Chloride 0.9%) 1,000 mls @ 100 mls/hr IV .Q10H [facility] Last Admin: 08/28/18 11:38 Dose: 100 mls/hr Insulin Human Lispro (Humalog Low) 0 units SC ACHS [facility]; Protocol Last Admin: 08/29/18 01:05 Dose: Not Given Lorazepam (Ativan) 1 mg IVP Q4 [facility]; Protocol PRN Reason: Symptoms of alcohol withdrawl Last Admin: 08/28/18 22:06 Dose: 1 mg Methylprednisolone (Solu-Medrol) 20 mg IVP DAILY [facility] Multivitamins/Minerals (Therapeutic-M Tab) 1 tab PO 0800 [facility] Last Admin: 08/28/18 08:05 Dose: 1 tab Pantoprazole Sodium (Protonix Inj) 40 mg IVP Q12 [facility] Last Admin: 08/28/18 22:05 Dose: 40 mg Thiamine HCl (Vitamin B1 Tab) 100 mg PO DAILY [facility] Last Admin: 08/28/18 09:16 Dose: 100 mg - Labs Labs: 08/29/18 06:00 08/29/18 06:00 PT 10.2 SECONDS (9.4-12.5) 04/21/19 06:00 INR 0.90 08/26/18 06:00 APTT 26.4 Seconds (26.9-38.3) L 08/23/18 15:24 Attending/Attestation - Attestation I have personally seen and examined this patient.: Yes I have fully participated in the care of the patient.: Yes I have reviewed all pertinent clinical information, including history, physical exam and plan: Yes Notes (Text): Patient seen and examined by me with resident at approximately 9:50AM on 08/28/18. Case including HPI, physical exam, and assessment and plan discussed with resident. Agree with above with following additions/corrections. Patient is a 63 year old male with past medical history significant for COPD, ETOH abuse, tobacco abuse, bilateral lower extremity ulcers, PAD, pneumothorax, and hyperlipidemia that presented to the emergency room with chest pain and shortness of breath. Patient states that he is upset. He states he wants a regular diet and he is getting a heart healthy diet. Patient denies shortness of breath. States he is still coughing. Patient denies any chest pain or palpitations. No nausea, vomiting, or abdominal pain. No fevers or chills. No headaches or dizziness. No dysuria. Patient is having bowel movements. Patient went for EGD yesterday but was unable to have procedure secondary to hypoxemia. Physical exam: General: Awake and alert lying in bed in no acute distress HEENT: Normocephalic, atraumatic. Extraocular muscles intact. Pupils equal and reactive, no scleral icterus. Oropharynx pink and moist. Poor dentition. Neck supple. Cardiovascular: Regular rhythm. Normal S1 and S2. No murmurs, rubs, or gallops appreciated Pulmonary: Normal respiratory effort. Decreased breath sounds. No rhonchi, rales, or wheezing appreciated. Gastrointestinal: Soft, nondistended. Nontender. Positive bowel sounds all 4 quadrants. No guarding. Musculoskeletal: Moves all extremities. No calf tenderness. No edema. Central nervous system: AAO x3. No focal deficits appreciated. Dermatologic: Skin warm and dry. Assessment and plan: Patient is a 63 year old male with past medical history significant for COPD, ETOH abuse, tobacco abuse, bilateral lower extemity ulcers, PAD, pneumothorax, and hyperlipidemia that presented to the emergency room with chest pain and shortness of breath. 1. COPD exacerbation. Continue nebulizer treatments, continue solu-medrol. Continue Pulmicort. Continue O2 via nasal cannula as needed. Pulmonary recommendations appreciated. Elevated D-dimer. Bilateral lower extremity venous dopplers negative for DVT. V/Q scan low probability for PE. Counseled on tobacco cessation. 2. Anemia. H&H Stable. Stool for occult blood positive. Continue IV protonix. GI recommendations appreciated. Patient for EGD tomorrow. 3. Hypokalemia. Resolved. Continue to monitor. 4. Chest pain. Resolved. ACS ruled out. Pleuritic pain. Troponins within normal limits. 5. Alcohol abuse and withdrawal. S/P scheduled ativan. Continue CIWA protocol. Continue thiamine, folic acid, and multivitamin. Counseled at length on alcohol cessation. 6. Transaminitis. Likely secondary to alcohol abuse. Downtrending. Continue to monitor. Hepatitis panel negative. 7. PAD. Continue lipitor. ASA on hold for possible GI bleed. 8. Tobacco abuse. Counseled at length on cessation. Case was discussed in detail with the patient regarding current diagnosis and treatment plan. All questions answered.
--- NOTE | 2018-08-28 15:18 | CP.PCM.PN ---
<Charlie Mckeon - Last Filed: 08/28/18 15:44> Subjective - Date & Time of Evaluation Date of Evaluation: 08/28/18 Time of Evaluation: 09:30 - Subjective Subjective: PGY4 GI fellow progress note Patient was lying in bed when seen this morning. states his breathing is improved from yesterday and is on room air at the time of my encounter. States he wants something more to eat. But, the food he is eating he is tolerating without difficulty. Denied any abdominal pain nor signs of bleeding. Eager for EGD tomorrow. Five-point review of systems negative other than stated above Objective - Vital Signs/Intake and Output Vital Signs (last 24 hours): Temp Pulse Resp BP Pulse Ox 97.6 F 66 18 99/63 L 96 08/28/18 08:00 08/28/18 08:00 08/28/18 08:00 08/28/18 08:00 08/28/18 08:00 Intake and Output: 08/28/18 08/28/18 06:59 18:59 Intake Total 1140 Output Total 1400 Balance -260 - Medications Medications: Current Medications Albuterol/Ipratropium (Duoneb 3 Mg/0.5 Mg (3 Ml) Ud) 3 ml IH Q2H PRN PRN Reason: Shortness of Breath Albuterol/Ipratropium (Duoneb 3 Mg/0.5 Mg (3 Ml) Ud) 3 ml IH [id number] [facility] Last Admin: 08/28/18 13:18 Dose: Not Given Aspirin (Aspirin Chewable) 81 mg PO DAILY [facility] Last Admin: 08/24/18 09:22 Dose: 81 mg Atorvastatin Calcium (Lipitor) 40 mg PO DAILY [facility] Last Admin: 08/28/18 09:16 Dose: 40 mg Budesonide (Pulmicort Respules) 0.5 mg IH [id number] [facility] Last Admin: 08/28/18 07:59 Dose: Not Given Enoxaparin Sodium (Lovenox) 40 mg SC DAILY [facility]; Protocol Last Admin: 08/28/18 09:16 Dose: 40 mg Folic Acid (Folic Acid) 1 mg PO DAILY [facility] Last Admin: 08/28/18 09:16 Dose: 1 mg Hydrocortisone (Anusol-Hc) 25 mg RC BID [facility] Last Admin: 08/28/18 09:16 Dose: Not Given Levofloxacin/Dextrose (Levaquin 500mg) 500 mg in 100 mls @ 100 mls/hr IVPB DAILY [facility]; Protocol Last Admin: 08/28/18 09:13 Dose: 100 mls/hr Sodium Chloride (Sodium Chloride 0.9%) 1,000 mls @ 100 mls/hr IV .Q10H [facility] Last Admin: 08/28/18 11:38 Dose: 100 mls/hr Insulin Human Lispro (Humalog Low) 0 units SC ACHS [facility]; Protocol Last Admin: 08/28/18 11:29 Dose: Not Given Lorazepam (Ativan) 1 mg IVP Q4 PRN; Protocol PRN Reason: Symptoms of alcohol withdrawl Methylprednisolone (Solu-Medrol) 20 mg IVP DAILY [facility] Multivitamins/Minerals (Therapeutic-M Tab) 1 tab PO 0800 [facility] Last Admin: 08/28/18 08:05 Dose: 1 tab Pantoprazole Sodium (Protonix Inj) 40 mg IVP Q12 [facility] Last Admin: 08/28/18 09:13 Dose: 40 mg Thiamine HCl (Vitamin B1 Tab) 100 mg PO DAILY [facility] Last Admin: 08/28/18 09:16 Dose: 100 mg - Labs Labs: 08/28/18 06:20 08/28/18 06:20 PT 10.2 SECONDS (9.4-12.5) 08/26/18 06:00 INR 0.90 08/26/18 06:00 APTT 26.4 Seconds (26.9-38.3) L 08/23/18 15:24 - Constitutional Appears: No Acute Distress, Chronically Ill - Head Exam Head Exam: ATRAUMATIC, NORMAL INSPECTION - Eye Exam Eye Exam: EOMI. absent: Scleral icterus - ENT Exam ENT Exam: Mucous Membranes Moist. absent: Mucous Membranes Dry - Respiratory Exam Respiratory Exam: NORMAL BREATHING PATTERN. absent: Accessory Muscle Use - GI/Abdominal Exam GI & Abdominal Exam: Soft, Normal Bowel Sounds. absent: Bruit, Distended, Firm, Guarding, Rigid, Tenderness, Mass, Pulsatile Mass Assessment and Plan - Assessment and Plan (Free Text) Assessment: 63 year old male with PMH of COPD, prior spontaneous left pneumothorax 04/2017, alcohol abuse, PAD complicated by leg ulcers/right toe amputation, and HLD presenting with chest pain and shortness of breath. Active treatment of COPD exacerbation. GI consultation for anemia. No prior EGD or colonoscopy. Iron 67, ferritin 128 B12/folate normal. Viral hep negative. LFTs trending down in setting of alcohol abuse. CT A/P PO/IV contrast-no acute pathology Plan: -Plan for EGD on 08/29/18 as long as continues to be stable from a respiratory standpoint. -PPI BID -Counselled on alcohol cessation -[facility] protocol Patient discussed with Dr. Gracia. Please see attestation for further recommendations/changes <Mendel Gracia Y - Last Filed: 08/28/18 16:07> Objective - Vital Signs/Intake and Output Vital Signs (last 24 hours): Temp Pulse Resp BP Pulse Ox 97.6 F 66 18 99/63 L 96 08/28/18 08:00 08/28/18 08:00 08/28/18 08:00 08/28/18 08:00 08/28/18 08:00 Intake and Output: 08/28/18 08/28/18 06:59 18:59 Intake Total 1140 Output Total 1400 Balance -260 - Medications Medications: Current Medications Albuterol/Ipratropium (Duoneb 3 Mg/0.5 Mg (3 Ml) Ud) 3 ml IH Q2H PRN PRN Reason: Shortness of Breath Albuterol/Ipratropium (Duoneb 3 Mg/0.5 Mg (3 Ml) Ud) 3 ml IH [id number] [facility] Last Admin: 08/28/18 13:18 Dose: Not Given Aspirin (Aspirin Chewable) 81 mg PO DAILY [facility] Last Admin: 08/24/18 09:22 Dose: 81 mg Atorvastatin Calcium (Lipitor) 40 mg PO DAILY [facility] Last Admin: 08/28/18 09:16 Dose: 40 mg Budesonide (Pulmicort Respules) 0.5 mg IH [id number] [facility] Last Admin: 08/28/18 07:59 Dose: Not Given Enoxaparin Sodium (Lovenox) 40 mg SC DAILY [facility]; Protocol Last Admin: 08/28/18 09:16 Dose: 40 mg Folic Acid (Folic Acid) 1 mg PO DAILY [facility] Last Admin: 08/28/18 09:16 Dose: 1 mg Hydrocortisone (Anusol-Hc) 25 mg RC BID [facility] Last Admin: 08/28/18 09:16 Dose: Not Given Levofloxacin/Dextrose (Levaquin 500mg) 500 mg in 100 mls @ 100 mls/hr IVPB CAROL LY [facility]; Protocol Last Admin: 08/28/18 09:13 Dose: 100 mls/hr Sodium Chloride (Sodium Chloride 0.9%) 1,000 mls @ 100 mls/hr IV .Q10H [facility] Last Admin: 08/28/18 11:38 Dose: 100 mls/hr Insulin Human Lispro (Humalog Low) 0 units SC ACHS [facility]; Protocol Last Admin: 08/28/18 11:29 Dose: Not Given Lorazepam (Ativan) 1 mg IVP Q4 PRN; Protocol PRN Reason: Symptoms of alcohol withdrawl Methylprednisolone (Solu-Medrol) 20 mg IVP DAILY [facility] Multivitamins/Minerals (Therapeutic-M Tab) 1 tab PO 0800 [facility] Last Admin: 08/28/18 08:05 Dose: 1 tab Pantoprazole Sodium (Protonix Inj) 40 mg IVP Q12 [facility] Last Admin: 08/28/18 09:13 Dose: 40 mg Thiamine HCl (Vitamin B1 Tab) 100 mg PO DAILY [facility] Last Admin: 08/28/18 09:16 Dose: 100 mg - Labs Labs: 08/28/18 06:20 08/28/18 06:20 PT 10.2 SECONDS (9.4-12.5) 08/26/18 06:00 INR 0.90 08/26/18 06:00 APTT 26.4 Seconds (26.9-38.3) L 08/23/18 15:24 Attending/Attestation - Attestation I have fully participated in the care of the patient.: Yes I have reviewed all pertinent clinical information, including history, physical exam and plan: Yes Notes (Text): 08/28/18 16:05 COPD ETOH abuse Anemia - Diet as tolerated - H/H stable, continue to monitor - ETOH cessation counseling - COPD management as per medical team - Will plan for EGD evaluation tomorrow for anemia workup, NPO after midnight
--- NOTE | 2018-08-28 16:56 | PN ---
DATE: 08/28/2018 SUBJECTIVE: The patient seen and examined at bedside. He is comfortable. He talks in full sentences. He is not in respiratory or otherwise distress. He is not hypoxemic on room air. OBJECTIVE: VITAL SIGNS: Temperature 97.6, blood pressure 99/63 with mean arterial pressure more than 75, respiratory rate 18, oxygen saturation 96% on room air. HEENT: Head and neck atraumatic. LUNGS: Decreased breath sounds bilaterally. No wheezing. HEART: Regular rate and rhythm, S1 and S2 normal. ABDOMEN: Soft, nontender, nondistended. MUSCULOSKELETAL: No C/C/E. NEURO: The patient moves all extremities spontaneously. SKIN: Moist. PSYCH: The patient is alert, awake and oriented, not in respiratory or otherwise distress. LABORATORY DATA: WBC 6, hemoglobin 8.7, platelet count 227. Sodium 130, potassium 4.4, chloride 95, carbon dioxide 33, BUN 18, creatinine 0.7, glucose 149, calcium 7.9, AST 33, ALT 69, total bilirubin 0.1, proBNP 164. ABG yesterday 7.42//36. Lactic acid 1.4. MEDICATIONS: DuoNeb p.r.n. and every 6 hours and on standing basis, aspirin, Lipitor, Pulmicort, Lovenox, folic acid, regular insulin sliding scale low protocol, levofloxacin, Ativan p.r.n., Solu-Medrol 20 mg daily, Protonix 4 mg IV every 12 hours, normal saline 100 mL/hour, thiamine 100 mg daily. ASSESSMENT AND PLAN: This is a 63 and gentleman who presented with chronic obstructive pulmonary disease exacerbation. Transient episode of hypoxemia which resolved shortly afterward prompted pulmonary consult. At the time of eval, the patient is normoxemic on room air, not in respiratory or otherwise distress, protecting airways, hemodynamically stable. V/Q scan is neg, LE doppler neg for DVT. Presently, I agree with steroid taper, antibiotics and bronchodilators. Continue with deep vein thrombosis and gastrointestinal prophylaxis. Maintain euvolemia, euglycemia, normothermia, and oxygen saturation more than 90%. Presently, I will sign off. Please reconsult pulmonary if any other concerns arise including, but not limited to respiratory distress, hypoxemia, retaining CO2, inability to protect airways, altered mental status, hypotension. Ariel Murillo MD [facility] # [id number] CATY
[2018-08-29] MEDS: Insulin Lispro (humaLOG) LOW Coverage SC SCH ×5 (01:05→22:10)
[2018-08-29] MEDS: Albuterol-Ipratrop 3 mg / 0.5 (3 ml) UD IH SCH ×4 (02:45→20:02)
[2018-08-29 06:31] LABS: EOS # 0.1 (0.0-0.7); EOS % 1.5 % (1.5-5.0); HEMOGLOBIN 8.9 g/dL (14.0-18.0); LYMPH # 1.8 (1.2-3.4); MEAN CELL VOLUME 102.2 fl (80.0-105.0); MEAN CORPUSCULAR HEMOGLOBIN 32.5 pg (25.0-35.0); MEAN CORPUSCULAR HGB CONC 31.8 g/dl (31.0-37.0); MEAN PLATELET VOLUME 10.1 fl (7.0-11.0); MONO # 1.3 (0.1-0.6); MONO % 18.9 % (1.0-6.0); RBC 2.74 10^6/uL (3.5-6.1); RED CELL DISTRIBUTION WIDTH 16.9 % (11.5-14.5); WHITE BLOOD COUNT 6.8 10^3/uL (4.5-11.0)
[2018-08-29 07:01] LABS: BLOOD UREA NITROGEN 19 mg/dL (7-21); CALCIUM 8.2 mg/dL (8.4-10.5); GFR NON-AFRICAN AMERICAN > 60
[2018-08-29] MEDS: Budesonide 0.5 mg/2 ml Inhal Susp UD IH SCH ×2 (08:05→20:02)
[2018-08-29] MEDS: Enoxaparin 40 mg Syringe SC SCH (10:49)
[2018-08-29] MEDS: Multivitamin With Minerals Tab PO SCH (10:50)
[2018-08-29] MEDS: MethylPREDNISolone 40 mg Vial IVP SCH (10:50)
[2018-08-29] MEDS ORDERED: Propofol 10 mg/ml Inj (20 ML) ONE ×2 (11:26→11:42)
[2018-08-29] MEDS ORDERED: Albuterol HFA 90 mcg/actuation (8 g) ONE ×2 (11:26→11:29)
[2018-08-29] MEDS ORDERED: Etomidate 20 mg/10ml Inj IV ONE (11:26)
--- NOTE | 2018-08-29 11:38 | CP.PCM.PN ---
<Karla Bañuelos - Last Filed: 08/29/18 11:35> Subjective - Date & Time of Evaluation Date of Evaluation: 08/29/18 Time of Evaluation: 11:35 - Subjective Subjective: Karla Bañuelos, PGY-1, Internal Medicine Progress Note for Dr. Chawla Patient seen and evaluated at bedside. Patient had no acute overnight events. Patient today reports improved mild midsternal chest pain, shortness of breath, 1 brown BM yesterday. He denies dysuria, hematuria, nausea, vomiting, fever, chills. 12-point ROS was unmarkable except for what was mentioned above. Objective - Vital Signs/Intake and Output Vital Signs (last 24 hours): Temp Pulse Resp BP Pulse Ox 97.4 F L 79 20 100/66 93 L 08/29/18 08:39 08/29/18 08:39 08/29/18 08:39 08/29/18 08:39 08/29/18 08:39 - Medications Medications: Current Medications Albuterol/Ipratropium (Duoneb 3 Mg/0.5 Mg (3 Ml) Ud) 3 ml IH Q2H PRN PRN Reason: Shortness of Breath Albuterol/Ipratropium (Duoneb 3 Mg/0.5 Mg (3 Ml) Ud) 3 ml IH [id number] [facility] Last Admin: 08/29/18 08:05 Dose: Not Given Aspirin (Aspirin Chewable) 81 mg PO DAILY [facility] Last Admin: 08/24/18 09:22 Dose: 81 mg Atorvastatin Calcium (Lipitor) 40 mg PO DAILY [facility] Last Admin: 08/29/18 10:50 Dose: 40 mg Budesonide (Pulmicort Respules) 0.5 mg IH [id number] [facility] Last Admin: 08/29/18 08:05 Dose: Not Given Enoxaparin Sodium (Lovenox) 40 mg SC DAILY [facility]; Protocol Last Admin: 08/29/18 10:49 Dose: 40 mg Folic Acid (Folic Acid) 1 mg PO DAILY [facility] Last Admin: 08/29/18 10:50 Dose: 1 mg Hydrocortisone (Anusol-Hc) 25 mg RC BID [facility] Last Admin: 08/28/18 17:00 Dose: Not Given Levofloxacin/Dextrose (Levaquin 500mg) 500 mg in 100 mls @ 100 mls/hr IVPB DAILY [facility]; Protocol Last Admin: 08/28/18 09:13 Dose: 100 mls/hr Sodium Chloride (Sodium Chloride 0.9%) 1,000 mls @ 100 mls/hr IV .Q10H [facility] Last Admin: 08/28/18 11:38 Dose: 100 mls/hr Insulin Human Lispro (Humalog Low) 0 units SC ACHS [facility]; Protocol Last Admin: 08/29/18 08:22 Dose: Not Given Lorazepam (Ativan) 1 mg IVP Q4 PRN; Protocol PRN Reason: Symptoms of alcohol withdrawl Last Admin: 08/28/18 22:06 Dose: 1 mg Methylprednisolone (Solu-Medrol) 20 mg IVP DAILY [facility] Last Admin: 08/29/18 10:50 Dose: 20 mg Multivitamins/Minerals (Therapeutic-M Tab) 1 tab PO 0800 [facility] Last Admin: 08/29/18 10:50 Dose: 1 tab Pantoprazole Sodium (Protonix Inj) 40 mg IVP Q12 [facility] Last Admin: 08/29/18 10:49 Dose: 40 mg Thiamine HCl (Vitamin B1 Tab) 100 mg PO DAILY [facility] Last Admin: 08/29/18 10:50 Dose: 100 mg - Labs Labs: 08/29/18 06:00 08/29/18 06:00 PT 10.2 SECONDS (9.4-12.5) 08/26/18 06:00 INR 0.90 08/26/18 06:00 APTT 26.4 Seconds (26.9-38.3) L 08/23/18 15:24 - Constitutional Appears: Well, Non-toxic, No Acute Distress - Head Exam Head Exam: ATRAUMATIC, NORMAL INSPECTION, NORMOCEPHALIC - Eye Exam Eye Exam: EOMI, PERRL - Respiratory Exam Respiratory Exam: Clear to Ausculation Bilateral, NORMAL BREATHING PATTERN - Cardiovascular Exam Cardiovascular Exam: REGULAR RHYTHM, RRR, +S1, +S2 - GI/Abdominal Exam GI & Abdominal Exam: Soft, Normal Bowel Sounds. absent: Tenderness - Extremities Exam Extremities Exam: Full ROM, Normal Capillary Refill, Normal Inspection - Neurological Exam Neurological Exam: Alert, Awake, CN II-XII Intact, Oriented x3 - Psychiatric Exam Psychiatric exam: Agitated - Skin Skin Exam: Dry, Intact, Normal Color Assessment and Plan - Assessment and Plan (Free Text) Assessment: 63 year old male with past medical history of COPD, alcohol abuse, peripheral artery disease, pneumothorax, hyperlipidemia initially presented for chest pain with ACS rule out and COPD exacerbation which have since resolved. He recently h ad a black tarry stool and has chronic NSAID use, and as a result, he will be evaluated for upper GI bleed. Plan: Chronic NSAID use with suspected upper GI bleed -FOBT was positive -Scheduled for endoscopy today for evaluation of etiology of upper GI bleed -Hemoglobin has been decreasing throughout this admission from 10s to 8s. -Today, Hgb was 8.9 -Continue protonix 40 mg IV BID -Held aspirin Shortness of breath 2/2 to PE vs. COPD exacerbation -V/Q scan shows low probability of PE -Lower extremity ultrasound shows no evidence of DVT -As a result, doubt PE as etiology for shortness of breath. COPD exacerbation -Patient currently is not wheezing -Continue with duonebs scheduled and PRN, pulmicort, levaquin -Continue solumedrol to 20 mg daily. On low SSI for solumedrol. Alcohol Withdrawal -Last CIWA: 1 -Continue with ativan 1 mg Q4 PRN -Continue with thiamine, MVI, folic acid Chest pain -Likely 2/2 to pleuritic pain -EKG showed NSR and troponinx3 was negative -Aspirin currently held due to suspected upper GI bleed Peripheral Artery Disease -Continue lipitor -Aspirin held for possible GI bleed Tobacco abuse -Counseled patient at length on cessation Hyperlipidemia -Continue with lipitor GI prophylaxis: protonix 40 mg BID DVT prophylaxis: SCD Disposition: Post EGD, will follow up with PT for 6 minute walk test for recommendations regarding discharge planning. Patient plan discussed with Dr. Chawla. <Lily Chawla R - Last Filed: 08/29/18 17:17> Objective - Vital Signs/Intake and Output Vital Signs (last 24 hours): Temp Pulse Resp BP Pulse Ox 98.4 F 64 16 108/58 L 96 08/29/18 12:18 08/29/18 12:18 08/29/18 12:18 08/29/18 12:18 08/29/18 12:18 - Medications Medications: Current Medications Albuterol/Ipratropium (Duoneb 3 Mg/0.5 Mg (3 Ml) Ud) 3 ml IH Q2H PRN PRN Reason: Shortness of Breath Albuterol/Ipratropium (Duoneb 3 Mg/0.5 Mg (3 Ml) Ud) 3 ml IH [id number] [facility] Last Admin: 08/29/18 13:35 Dose: Not Given Aspirin (Aspirin Chewable) 81 mg PO DAILY [facility] Last Admin: 08/24/18 09:22 Dose: 81 mg Atorvastatin Calcium (Lipitor) 40 mg PO DAILY [facility] Last Admin: 08/29/18 10:50 Dose: 40 mg Budesonide (Pulmicort Respules) 0.5 mg IH [id number] [facility] Last Admin: 08/29/18 08:05 Dose: Not Given Enoxaparin Sodium (Lovenox) 40 mg SC DAILY [facility]; Protocol Last Admin: 08/29/18 10:49 Dose: 40 mg Folic Acid (Folic Acid) 1 mg PO DAILY [facility] Last Admin: 08/29/18 10:50 Dose: 1 mg Hydrocortisone (Anusol-Hc) 25 mg RC BID [facility] Last Admin: 08/29/18 10:49 Dose: Not Given Levofloxacin/Dextrose (Levaquin 500mg) 500 mg in 100 mls @ 100 mls/hr IVPB DAILY [facility]; Protocol Last Admin: 08/29/18 13:57 Dose: 100 mls/hr Insulin Human Lispro (Humalog Low) 0 units SC ACHS [facility]; Protocol Last Admin: 08/29/18 11:30 Dose: Not Given Lorazepam (Ativan) 1 mg IVP Q4 PRN; Protocol PRN Reason: Symptoms of alcohol withdrawl Last Admin: 08/28/18 22:06 Dose: 1 mg Methylprednisolone (Solu-Medrol) 20 mg IVP DAILY [facility] Last Admin: 08/29/18 10:50 Dose: 20 mg Multivitamins/Minerals (Therapeutic-M Tab) 1 tab PO 0800 [facility] Last Admin: 08/29/18 10:50 Dose: 1 tab Pantoprazole Sodium (Protonix Inj) 40 mg IVP Q12 [facility] Last Admin: 08/29/18 10:49 Dose: 40 mg Thiamine HCl (Vitamin B1 Tab) 100 mg PO DAILY [facility] Last Admin: 08/29/18 10:50 Dose: 100 mg - Labs Labs: 08/29/18 06:00 08/29/18 06:00 PT 10.2 SECONDS (9.4-12.5) 08/26/18 06:00 INR 0.90 08/26/18 06:00 APTT 26.4 Seconds (26.9-38.3) L 08/23/18 15:24 Attending/Attestation - Attestation I have personally seen and examined this patient.: Yes I have fully participated in the care of the patient.: Yes I have reviewed all pertinent clinical information, including history, physical exam and plan: Yes Notes (Text): Patient seen and examined by me with resident at approximately 10:10AM on 08/29/18. Case including HPI, physical exam, and assessment and plan discussed with resident. Agree with above with following additions/corrections. Patient is a 63 year old male with past medical history significant for COPD, ETOH abuse, tobacco abuse, bilateral lower extremity ulcers, PAD, pneumothorax, and hyperlipidemia that presented to the emergency room with chest pain and shortness of breath. Patient states that he feels ok. Patient is upset that he is NPO. He understands he's going for EGD today. Patient states he has shortness of breath if he walks to the bathroom. Denies shortness of breath at rest. Patient denies any chest pain or palpitations. No nausea, vomiting, or abdominal pain. No fevers or chills. No headaches or dizziness. No dysuria. Physical exam: General: Awake and alert lying in bed in no acute distress HEENT: Normocephalic, atraumatic. Extraocular muscles intact. Pupils equal and reactive, no scleral icterus. Oropharynx pink and moist. Poor dentition. Neck supple. Cardiovascular: Regular rhythm. Normal S1 and S2. No murmurs, rubs, or gallops appreciated Pulmonary: Normal respiratory effort. Decreased breath sounds. No rhonchi, rales, or wheezing appreciated. Gastrointestinal: Soft, nondistended. Nontender. Positive bowel sounds all 4 quadrants. No guarding. Musculoskeletal: Moves all extremities. No calf tenderness. No edema. Central nervous system: AAO x3. No focal deficits appreciated. Dermatologic: Skin warm and dry. Assessment and plan: Patient is a 63 year old male with past medical history significant for COPD, ETOH abuse, tobacco abuse, bilateral lower extemity ulcers, PAD, pneumothorax, and hyperlipidemia that presented to the emergency room with chest pain and shortness of breath. 1. COPD exacerbation. Continue nebulizer treatments, continue solu-medrol, taper. Continue Pulmicort. Continue Levaquin. Continue O2 via nasal cannula as needed. Pulmonary recommendations appreciated. Elevated D-dimer. Bilateral lower extremity venous dopplers negative for DVT. V/Q scan low probability for PE. Counseled on tobacco cessation. 2. Anemia. H&H Stable. Stool for occult blood positive. Continue IV protonix. GI recommendations appreciated. Patient for EGD today. 3. Hypokalemia. Resolved. Continue to monitor. 4. Chest pain. Resolved. ACS ruled out. Pleuritic pain. Troponins within normal limits. 5. [facility] and [facility]. Continue thiamine, folic acid, and multivitamin. Counseled at length on alcohol cessation. 6. Transaminitis. Likely secondary to alcohol abuse. Downtrending. Continue to monitor. Hepatitis panel negative. 7. PAD. Continue lipitor. ASA on hold for possible GI bleed, Resume when OK with GI 8. Tobacco abuse. Counseled at length on cessation. Case was discussed in detail with the patient regarding current diagnosis and treatment plan. All questions answered.
[2018-08-29] MEDS ORDERED: Sodium Chloride 0.9% 1,000 ML IV SCH (12:00)
[2018-08-29] MEDS: levoFLOXacin 500 mg in D5W 500 MG/100 ML BAG IVPB SCH (13:57)
--- NOTE | 2018-08-29 18:15 | CP.PCM.PN ---
Subjective - Date & Time of Evaluation Date of Evaluation: 08/29/18 Time of Evaluation: 18:13 - Subjective Subjective: Patient s/p EGD today showing gastritis, hiatal hernia. No features of recent or active bleeding noted. Objective - Vital Signs/Intake and Output Vital Signs (last 24 hours): Temp Pulse Resp BP Pulse Ox 98.4 F 64 16 108/58 L 96 08/29/18 12:18 08/29/18 12:18 08/29/18 12:18 08/29/18 12:18 08/29/18 12:18 - Medications Medications: Current Medications Albuterol/Ipratropium (Duoneb 3 Mg/0.5 Mg (3 Ml) Ud) 3 ml IH Q2H PRN PRN Reason: Shortness of Breath Albuterol/Ipratropium (Duoneb 3 Mg/0.5 Mg (3 Ml) Ud) 3 ml IH [id number] [facility] Last Admin: 08/29/18 13:35 Dose: Not Given Aspirin (Aspirin Chewable) 81 mg PO DAILY [facility] Last Admin: 08/24/18 09:22 Dose: 81 mg Atorvastatin Calcium (Lipitor) 40 mg PO DAILY [facility] Last Admin: 08/29/18 10:50 Dose: 40 mg Budesonide (Pulmicort Respules) 0.5 mg IH [id number] [facility] Last Admin: 08/29/18 08:05 Dose: Not Given Enoxaparin Sodium (Lovenox) 40 mg SC DAILY [facility]; Protocol Last Admin: 08/29/18 10:49 Dose: 40 mg Folic Acid (Folic Acid) 1 mg PO DAILY [facility] Last Admin: 08/29/18 10:50 Dose: 1 mg Hydrocortisone (Anusol-Hc) 25 mg RC BID [facility] Last Admin: 08/29/18 10:49 Dose: Not Given Levofloxacin/Dextrose (Levaquin 500mg) 500 mg in 100 mls @ 100 mls/hr IVPB DAILY [facility]; Protocol Last Admin: 08/29/18 13:57 Dose: 100 mls/hr Insulin Human Lispro (Humalog Low) 0 units SC ACHS [facility]; Protocol Last Admin: 08/29/18 17:30 Dose: Not Given Lorazepam (Ativan) 1 mg IVP Q4 PRN; Protocol PRN Reason: Symptoms of alcohol withdrawl Last Admin: 08/28/18 22:06 Dose: 1 mg Methylprednisolone (Solu-Medrol) 20 mg IVP DAILY [facility] Last Admin: 08/29/18 10:50 Dose: 20 mg Multivitamins/Minerals (Therapeutic-M Tab) 1 tab PO 0800 [facility] Last Admin: 08/29/18 10:50 Dose: 1 tab Pantoprazole Sodium (Protonix Inj) 40 mg IVP Q12 [facility] Last Admin: 08/29/18 10:49 Dose: 40 mg Thiamine HCl (Vitamin B1 Tab) 100 mg PO DAILY [facility] Last Admin: 08/29/18 10:50 Dose: 100 mg - Labs Labs: 08/29/18 06:00 08/29/18 06:00 PT 10.2 SECONDS (9.4-12.5) 08/26/18 06:00 INR 0.90 08/26/18 06:00 APTT 26.4 Seconds (26.9-38.3) L 08/23/18 15:24 Assessment and Plan - Assessment and Plan (Free Text) Assessment: ETOH abuse COPD PVD Hyperlipidemia Anemia s/p EGD showing gastritis, hiatal hernia Plan: - Diet as tolerated - Continue with PPI therapy - Follow up EGD biopsy results - Patient would benefit from colonoscopy evaluation which can be performed elect ively as outpatient. No further planned GI interventions, will sign off case. Please reconsult as necessary, thank you.
[2018-08-30] MEDS: Albuterol-Ipratrop 3 mg / 0.5 (3 ml) UD IH SCH ×2 (02:47→08:47)
[2018-08-30 06:22] LABS: EOS # 0.2 (0.0-0.7); EOS % 2.6 % (1.5-5.0); LYMPH # 1.3 (1.2-3.4); LYMPH % 21.3 % (22.0-35.0); MEAN CELL VOLUME 102.9 fl (80.0-105.0); MEAN CORPUSCULAR HEMOGLOBIN 33.1 pg (25.0-35.0); MEAN CORPUSCULAR HGB CONC 32.1 g/dl (31.0-37.0); MEAN PLATELET VOLUME 9.9 fl (7.0-11.0); MONO # 1.1 (0.1-0.6); MONO % 17.8 % (1.0-6.0); RBC 2.72 10^6/uL (3.5-6.1); RED CELL DISTRIBUTION WIDTH 16.9 % (11.5-14.5); WHITE BLOOD COUNT 6.2 10^3/uL (4.5-11.0)
[2018-08-30 06:53] VITALS: BP 104/64; PULSE 59; RESP 20; TEMP 98.2; O2SAT 95
[2018-08-30] MEDS: Insulin Lispro (humaLOG) LOW Coverage SC SCH ×3 (07:38→17:09)
[2018-08-30] MEDS: Multivitamin With Minerals Tab PO SCH (08:02)
[2018-08-30] MEDS: Budesonide 0.5 mg/2 ml Inhal Susp UD IH SCH (08:47)
--- NOTE | 2018-08-30 09:08 | CP.PCM.DIS ---
<Karla Bañuelos - Last Filed: 08/30/18 14:49> Provider - Provider Date of Admission: 08/23/18 18:37 Attending physician: Lily Chawla DO Consults: 08/27/18 13:52 Pulmonology Consult Routine Comment: Consulting Provider: Ariel Murillo Consulting Physician: Ariel Murillo Reason for Consult: COPD, hypoxic before EGD Time Spent in preparation of Discharge (in minutes): 60 Hospital Course - Lab Results Lab Results: Most Recent Lab Values WBC 6.2 10^3/uL (4.5-11.0) 08/30/18 06:00 RBC 2.72 10^6/uL (3.5-6.1) L 08/30/18 06:00 Hgb 9.0 g/dL (14.0-18.0) L 08/30/18 06:00 Hct 28.0 % (42.0-52.0) L 08/30/18 06:00 MCV 102.9 fl (80.0-105.0) 08/30/18 06:00 MCH 33.1 pg (25.0-35.0) 08/30/18 06:00 MCHC 32.1 g/dl (31.0-37.0) 08/30/18 06:00 RDW 16.9 % (11.5-14.5) H 08/30/18 06:00 Plt Count 288 10^3/uL (120.0-450.0) 08/30/18 06:00 MPV 9.9 fl (7.0-11.0) 08/30/18 06:00 Neut % (Auto) 58.3 % (50.0-68.0) 08/30/18 06:00 Lymph % (Auto) 21.3 % (22.0-35.0) L 08/30/18 06:00 Jack % (Auto) 17.8 % (1.0-6.0) H 08/30/18 06:00 Eos % (Auto) 2.6 % (1.5-5.0) 08/30/18 06:00 Baso % (Auto) 0.0 % (0.0-3.0) 08/30/18 06:00 Lymph # (Auto) 1.3 (1.2-3.4) 08/30/18 06:00 Jack # (Auto) 1.1 (0.1-0.6) H 08/30/18 06:00 Eos # (Auto) 0.2 (0.0-0.7) 08/30/18 06:00 Baso # (Auto) 0.00 K/mm3 (0.0-2.0) 08/30/18 06:00 Absolute Neuts (auto) 3.63 (1.4-6.5) 08/30/18 06:00 Retic Count 7.83 % (0.5-1.5) H 08/28/18 07:00 PT 10.2 SECONDS (9.4-12.5) 08/26/18 06:00 INR 0.90 08/26/18 06:00 APTT 26.4 Seconds (26.9-38.3) L 08/23/18 15:24 D-Dimer, Quantitative 2214 ng/mlDDU (0-243) H 08/27/18 16:50 pCO2 36 mm/Hg (35-45) 08/27/18 16:50 pO2 66.0 mm/Hg (80-100) L 08/27/18 16:50 HCO3 23.4 mmol/L (21-28) 08/27/18 16:50 ABG pH 7.42 (7.35-7.45) 08/27/18 16:50 ABG Total CO2 24.5 mmol.L (22-28) 08/27/18 16:50 ABG O2 Saturation 96.7 % (95-98) 08/27/18 16:50 ABG Base Excess -0.7 mmol/L (-2.0-3.0) 08/27/18 16:50 ABG Potassium 3.9 mmol/L (3.6-5.2) 08/27/18 16:50 Sodium 133.0 mmol/L (132-148) 08/27/18 16:50 Chloride 105.0 mmol/L (98-107) 08/27/18 16:50 Glucose 178 mg/dl (75-110) H 08/27/18 16:50 Lactate 1.4 mmol/L (0.7-2.1) 08/27/18 16:50 FiO2 35.0 % 08/27/18 16:50 Sodium 135 mmol/L (132-148) 08/29/18 06:00 Potassium 3.8 mmol/L (3.6-5.0) 08/29/18 06:00 Chloride 97 mmol/L (98-107) L 08/29/18 06:00 Carbon Dioxide 38 mmol/L (21-33) H 08/29/18 06:00 Anion Gap 4 (10-20) L 08/29/18 06:00 BUN 19 mg/dL (7-21) 08/29/18 06:00 Creatinine 0.7 mg/dl (0.8-1.5) L 08/29/18 06:00 Est GFR ( Amer) > 60 08/29/18 06:00 Est GFR (Non-Af Amer) > 60 08/29/18 06:00 POC Glucose (mg/dL) 111 mg/dL (65-110) H 08/30/18 07:16 Random Glucose 94 mg/dL (70-110) 08/29/18 06:00 Hemoglobin A1c 5.8 % (4.2-6.5) 08/24/18 03:40 Serum Osmolality 283 mosm/kg (272-300) 08/23/18 15:24 Calcium 8.2 mg/dL (8.4-10.5) L 08/29/18 06:00 Magnesium 2.0 mg/dL (1.7-2.2) 08/23/18 15:24 Iron 67 ug/dL (45-180) 08/25/18 06:10 TIBC 274 ug/dL (261-462) 08/25/18 06:10 % Saturation 24 % (20-55) 08/25/18 06:10 Transferrin 200.35 mg/dL (206-381) L 08/25/18 06:10 Ferritin 128.0 ng/mL 08/25/18 06:10 Total Bilirubin 0.1 mg/dL (0.2-1.3) L 08/28/18 06:20 AST 33 U/L (17-59) 08/28/18 06:20 ALT 69 U/L (7-56) H 08/28/18 06:20 Alkaline Phosphatase 34 U/L (38-126) L 08/28/18 06:20 Lactate Dehydrogenase 375 U/L (333-699) 08/23/18 15:24 Total Creatine Kinase 116 U/L (35-230) 08/23/18 15:24 Troponin I < 0.01 ng/mL 08/24/18 03:40 NT-Pro-B Natriuret Pep 164 pg/mL (0-450) 08/27/18 16:50 Total Protein 4.8 g/dL (5.8-8.3) L 08/28/18 06:20 Albumin 2.8 g/dL (3.0-4.8) L 08/28/18 06:20 Globulin 1.9 gm/dL 08/28/18 06:20 Albumin/Globulin Ratio 1.5 (1.1-1.8) 08/28/18 06:20 Triglycerides 83 mg/dL (35-160) 08/24/18 03:40 Cholesterol 140 mg/dL (130-200) 08/24/18 03:40 LDL Cholesterol Direct 70 mg/dL (0-129) 08/24/18 03:40 HDL Cholesterol 62 mg/dL (29-60) H 08/24/18 03:40 Vitamin B12 391 pg/mL (239-931) 08/25/18 06:10 Folate 11.9 ng/mL 08/25/18 06:10 Procalcitonin < 0.05 NG/ML (0.19-0.49) L 08/27/18 16:50 TSH 3rd Generation 2.17 mIU/mL (0.46-4.68) 08/28/18 10:45 Arterial Blood Potassium 3.9 mmol/L (3.6-5.2) 08/27/18 16:50 Urine Color Yellow (YELLOW) 08/23/18 17:00 Urine Appearance Clear (CLEAR) 08/23/18 17:00 Urine pH 6.0 (4.7-8.0) 08/23/18 17:00 Ur Specific [place] 1.015 (1.005-1.035) 08/23/18 17:00 Urine Protein Negative mg/dL (<30 mg/dL) 08/23/18 17:00 Urine Glucose (UA) Negative mg/dL (NEGATIVE) 08/23/18 17:00 Urine Ketones Trace mg/dL (NEGATIVE) H 08/23/18 17:00 Urine Blood Trace-intact (NEGATIVE) H 08/23/18 17:00 Urine Nitrate Negative (NEGATIVE) 08/23/18 17:00 Urine Bilirubin Negative (NEGATIVE) 08/23/18 17:00 Urine Urobilinogen 0.2 E.U./dL (<1 E.U./dL) 08/23/18 17:00 Ur Leukocyte Esterase Negative Alyssa/uL (NEGATIVE) 08/23/18 17:00 Urine RBC 0 - 2 /hpf (0-2) 08/23/18 17:00 Urine WBC None /hpf (0-6) 08/23/18 17:00 Ur Epithelial Cells None /hpf (0-5) 08/23/18 17:00 Stool Occult Blood Positive (NEGATIVE) H 08/24/18 11:30 Salicylates < 1 mg/dL (2.0-20.0) L 08/23/18 15:24 Urine Opiates Screen Negative (NEGATIVE) 08/23/18 20:20 Urine Methadone Screen Negative (NEGATIVE) 08/23/18 20:20 Acetaminophen < 10.0 ug/ml (10.0-20.0) L 08/23/18 15:24 Ur Barbiturates Screen Negative (NEGATIVE) 08/23/18 20:20 Ur Phencyclidine Scrn Negative (NEGATIVE) 08/23/18 20:20 Ur Amphetamines Screen Negative (NEGATIVE) 08/23/18 20:20 U Benzodiazepines Scrn Negative (NEGATIVE) 08/23/18 20:20 U Oth Cocaine Metabols Negative (NEGATIVE) 08/23/18 20:20 U Cannabinoids Screen Negative (NEGATIVE) 08/23/18 20:20 Alcohol, Quantitative 48 mg/dL (0-10) H 08/23/18 15:24 Hepatitis A IgM Ab Negative (NEGATIVE) 08/24/18 17:30 Hepatitis A Ab Total Antibody pos (NEGATIVE) 08/24/18 17:30 Hep Bs Antigen Negative (NEGATIVE) 08/24/18 17:30 Hep Bs Antibody Negative (NEGATIVE) 08/24/18 17:30 Hep B Core IgM Ab Negative (NEGATIVE) 08/24/18 17:30 Hepatitis C Antibody Negative (NEGATIVE) 08/24/18 17:30 Blood Type O POSITIVE 08/24/18 13:00 Antibody Screen Negative 08/24/18 13:00 BBK History Checked Patient has bt 08/24/18 13:00 - Hospital Course Hospital Course: Karla Bañuelos, PGY-1, Internal Medicine Discharge Summary for Dr. Chawla 63 year old male with past medical history of COPD, alcohol abuse, bilateral lower extremity ulcers, PAD, pneumothorax, hyperlipidemia presented with chest pain, shortness of breath. He stated having shortness of breath at baseline but it worsened and had a cough with green sputum. EKG on admission showed NSR with heart rate of 92, and tropininx3 was negative. Echocardiogram was performed which showed left ventricular ejection fraction of 55-60%. The following day, patient started to have dark, tarry stool. Patient was found to have chronic NSAID use history, and FOBT was positive. Hemoglobin was 9.5 at this time from 10.6 on admission. GI was consulted who performed endoscopy yesterday. Patient was initially scheduled for endoscopy on Monday, however, patient became hypoxic prior to endoscopy and endoscopy was postponed. V/Q scan and extremity ultrasound were performed to rule out pulmonary embolism or DVT and pulmonary embolism and DVT was ruled out. Endoscopy yesterday showed gastritis and a hiatal hernia. There were no features of recent or active bleeding. Hemoglobin remained stable. Chest X ray on admission showed no effusions of signs of infection. Worsening of shortness of breath was attributed to COPD exacerbation and started on duonebs and zithromax. Patient continued to have wheezing and was started on pulmicort and solumedrol 20 Q8. Solumedrol was titrated down as this admission progressed. Patient was started on levaquin and zithromax was stopped subsequently. Patient has a history of alcohol abuse and was started on CIWA protocol with banana bag, ativan, multivitamin, folate, and thiamine. CIWA was 4 or less throughout the admission. Patient was found to be stable and ready for discharge. Patient did well on 6 minute walk test with O2 saturation of 93-94% throughout the test. Patient was told to follow up with PCP, Dr. Godinez, within 3-5 days. He was told to follow up with GI, Dr. Gracia, and pulmonology, Dr. Murillo within 1 week. Patient was told to take all medications as prescribed including aspirin 81 mg daily. Patient was told to return to the emergency department if he had any new or concerning symptoms. This is a brief summary of the events that transpired at the hospital. For more information, please refer to the hospital documentation. Discharge diagnoses Black tarry stool COPD Rule out PE Alcohol Abuse/Withdrawal Atypical Chest pain Peripheral Artery Disease Tobacco Abuse Hyperlipidemia - Date & Time of H&P Date of H&P: 08/23/18 Time of H&P: 19:48 Discharge Exam - Head Exam Head Exam: ATRAUMATIC, NORMAL INSPECTION - Eye Exam Eye Exam: EOMI, PERRL - Respiratory Exam Respiratory Exam: Wheezes. absent: Rales, Rhonchi, Respiratory Distress - Cardiovascular Exam Cardiovascular Exam: REGULAR RHYTHM, RRR, +S1, +S2. absent: Clicks, Gallop, Rubs - GI/Abdominal Exam GI & Abdominal Exam: Normal Bowel Sounds, Soft. absent: Distended, Firm, Tenderness - Extremities Exam Extremities exam: full ROM, normal capillary refill, normal inspection - Neurological Exam Neurological exam: Alert, CN II-XII Intact, Oriented x3 - Psychiatric Exam Psychiatric exam: Normal Affect, Normal Mood - Skin Skin Exam: Dry, Intact, Normal Color Additional comments: hypopigmented patched on back Discharge Plan - Discharge Medications Prescriptions: Aspirin [Aspirin Chewable] 81 mg PO DAILY 30 Days #30 chew Atorvastatin [Lipitor] 40 mg PO DAILY 30 Days #30 tab Fluticasone/Salmeterol 250/50 [Advair Diskus] 1 puff IH Q12 30 Days #1 dsk Folic Acid 1 mg PO DAILY 30 Days #30 tab Methylprednisolone [Medrol Dose Pack (21 tabs)] 4 mg PO DAILY #21 mg Multimineral/Multivitamin [Therapeutic-M Tab] 1 tab PO 0800 30 Days #30 tab Pantoprazole [Protonix EC Tab] 40 mg PO DAILY 30 Days #30 ect Thiamine [Vitamin B1 Tab] 100 mg PO DAILY 30 Days #30 tab Tiotropium [Spiriva] 18 mcg IH DAILY 30 Days #1 dsk - Follow Up Plan Condition: STABLE Disposition: HOME/ ROUTINE Instructions: Chest Pain (DC), Exacerbation of COPD (DC) Additional Instructions: 1. Please resume home medications as prescribed. 2. Follow up with your primary care physician, Dr. Godinez, within 3 to 5 days. 3. Follow up with your felt puller (stomach doctor), Dr. Gracia, within 1 week. Please avoid using NSAIDS (alleve, motrin, ibuprofen, etc) 4. Follow up with your engineering clerk (lung doctor), Dr. Murillo, within 1 week. 4. Please continue your home Aspirin 81mg daily. 5. Please refrain from alcohol use and tobacco use. 6. Please go to the emergency room if your symptoms return or you experience any new concerning symptoms. Referrals: Alana Godinez MD [Family Provider] - Mendel Gracia MD [Staff Provider] - Ariel Murillo MD [Staff Provider] - <Lily Chawla - Last Filed: 08/30/18 18:28> Provider - Provider Date of Admission: 08/23/18 18:37 Attending physician: Lily Chawla DO Consults: 08/27/18 13:52 Pulmonology Consult Routine Comment: Consulting Provider: Ariel Murillo Consulting Physician: Ariel Murillo Reason for Consult: COPD, hypoxic before EGD Hospital Course - Lab Results Lab Results: Most Recent Lab Values WBC 6.2 10^3/uL (4.5-11.0) 08/30/18 06:00 RBC 2.72 10^6/uL (3.5-6.1) L 08/30/18 06:00 Hgb 9.0 g/dL (14.0-18.0) L 08/30/18 06:00 Hct 28.0 % (42.0-52.0) L 08/30/18 06:00 MCV 102.9 fl (80.0-105.0) 08/30/18 06:00 MCH 33.1 pg (25.0-35.0) 08/30/18 06:00 MCHC 32.1 g/dl (31.0-37.0) 08/30/18 06:00 RDW 16.9 % (11.5-14.5) H 08/30/18 06:00 Plt Count 288 10^3/uL (120.0-450.0) 08/30/18 06:00 MPV 9.9 fl (7.0-11.0) 08/30/18 06:00 Neut % (Auto) 58.3 % (50.0-68.0) 08/30/18 06:00 Lymph % (Auto) 21.3 % (22.0-35.0) L 08/30/18 06:00 Jack % (Auto) 17.8 % (1.0-6.0) H 08/30/18 06:00 Eos % (Auto) 2.6 % (1.5-5.0) 08/30/18 06:00 Baso % (Auto) 0.0 % (0.0-3.0) 08/30/18 06:00 Lymph # (Auto) 1.3 (1.2-3.4) 08/30/18 06:00 Jack # (Auto) 1.1 (0.1-0.6) H 08/30/18 06:00 Eos # (Auto) 0.2 (0.0-0.7) 08/30/18 06:00 Baso # (Auto) 0.00 K/mm3 (0.0-2.0) 08/30/18 06:00 Absolute Neuts (auto) 3.63 (1.4-6.5) 08/30/18 06:00 Retic Count 7.83 % (0.5-1.5) H 08/28/18 07:00 PT 10.2 SECONDS (9.4-12.5) 08/26/18 06:00 INR 0.90 08/26/18 06:00 APTT 26.4 Seconds (26.9-38.3) L 08/23/18 15:24 D-Dimer, Quantitative 2214 ng/mlDDU (0-243) H 08/27/18 16:50 pCO2 36 mm/Hg (35-45) 08/27/18 16:50 pO2 66.0 mm/Hg (80-100) L 08/27/18 16:50 HCO3 23.4 mmol/L (21-28) 08/27/18 16:50 ABG pH 7.42 (7.35-7.45) 08/27/18 16:50 ABG Total CO2 24.5 mmol.L (22-28) 08/27/18 16:50 ABG O2 Saturation 96.7 % (95-98) 08/27/18 16:50 ABG Base Excess -0.7 mmol/L (-2.0-3.0) 08/27/18 16:50 ABG Potassium 3.9 mmol/L (3.6-5.2) 08/27/18 16:50 Sodium 133.0 mmol/L (132-148) 08/27/18 16:50 Chloride 105.0 mmol/L (98-107) 08/27/18 16:50 Glucose 178 mg/dl (75-110) H 08/27/18 16:50 Lactate 1.4 mmol/L (0.7-2.1) 08/27/18 16:50 FiO2 35.0 % 08/27/18 16:50 Sodium 135 mmol/L (132-148) 08/29/18 06:00 Potassium 3.8 mmol/L (3.6-5.0) 08/29/18 06:00 Chloride 97 mmol/L (98-107) L 08/29/18 06:00 Carbon Dioxide 38 mmol/L (21-33) H 08/29/18 06:00 Anion Gap 4 (10-20) L 08/29/18 06:00 BUN 19 mg/dL (7-21) 08/29/18 06:00 Creatinine 0.7 mg/dl (0.8-1.5) L 08/29/18 06:00 Est GFR ( Amer) > 60 08/29/18 06:00 Est GFR (Non-Af Amer) > 60 08/29/18 06:00 POC Glucose (mg/dL) 147 mg/dL (65-110) H 08/30/18 12:02 Random Glucose 94 mg/dL (70-110) 08/29/18 06:00 Hemoglobin A1c 5.8 % (4.2-6.5) 08/24/18 03:40 Serum Osmolality 283 mosm/kg (272-300) 08/23/18 15:24 Calcium 8.2 mg/dL (8.4-10.5) L 08/29/18 06:00 Magnesium 2.0 mg/dL (1.7-2.2) 08/23/18 15:24 Iron 67 ug/dL (45-180) 08/25/18 06:10 TIBC 274 ug/dL (261-462) 08/25/18 06:10 % Saturation 24 % (20-55) 08/25/18 06:10 Transferrin 200.35 mg/dL (206-381) L 08/25/18 06:10 Ferritin 128.0 ng/mL 08/25/18 06:10 Total Bilirubin 0.1 mg/dL (0.2-1.3) L 08/28/18 06:20 AST 33 U/L (17-59) 08/28/18 06:20 ALT 69 U/L (7-56) H 08/28/18 06:20 Alkaline Phosphatase 34 U/L (38-126) L 08/28/18 06:20 Lactate Dehydrogenase 375 U/L (333-699) 08/23/18 15:24 Total Creatine Kinase 116 U/L (35-230) 08/23/18 15:24 Troponin I < 0.01 ng/mL 08/24/18 03:40 NT-Pro-B Natriuret Pep 164 pg/mL (0-450) 08/27/18 16:50 Total Protein 4.8 g/dL (5.8-8.3) L 08/28/18 06:20 Albumin 2.8 g/dL (3.0-4.8) L 08/28/18 06:20 Globulin 1.9 gm/dL 08/28/18 06:20 Albumin/Globulin Ratio 1.5 (1.1-1.8) 08/28/18 06:20 Triglycerides 83 mg/dL (35-160) 08/24/18 03:40 Cholesterol 140 mg/dL (130-200) 08/24/18 03:40 LDL Cholesterol Direct 70 mg/dL (0-129) 08/24/18 03:40 HDL Cholesterol 62 mg/dL (29-60) H 08/24/18 03:40 Vitamin B12 391 pg/mL (239-931) 08/25/18 06:10 Folate 11.9 ng/mL 08/25/18 06:10 Procalcitonin < 0.05 NG/ML (0.19-0.49) L 08/27/18 16:50 TSH 3rd Generation 2.17 mIU/mL (0.46-4.68) 08/28/18 10:45 Arterial Blood Potassium 3.9 mmol/L (3.6-5.2) 08/27/18 16:50 Urine Color Yellow (YELLOW) 08/23/18 17:00 Urine Appearance Clear (CLEAR) 08/23/18 17:00 Urine pH 6.0 (4.7-8.0) 08/23/18 17:00 Ur Specific [place] 1.015 (1.005-1.035) 08/23/18 17:00 Urine Protein Negative mg/dL (<30 mg/dL) 08/23/18 17:00 Urine Glucose (UA) Negative mg/dL (NEGATIVE) 08/23/18 17:00 Urine Ketones Trace mg/dL (NEGATIVE) H 08/23/18 17:00 Urine Blood Trace-intact (NEGATIVE) H 08/23/18 17:00 Urine Nitrate Negative (NEGATIVE) 08/23/18 17:00 Urine Bilirubin Negative (NEGATIVE) 08/23/18 17:00 Urine Urobilinogen 0.2 E.U./dL (<1 E.U./dL) 08/23/18 17:00 Ur Leukocyte Esterase Negative Alyssa/uL (NEGATIVE) 08/23/18 17:00 Urine RBC 0 - 2 /hpf (0-2) 08/23/18 17:00 Urine WBC None /hpf (0-6) 08/23/18 17:00 Ur Epithelial Cells None /hpf (0-5) 08/23/18 17:00 Stool Occult Blood Positive (NEGATIVE) H 08/24/18 11:30 Salicylates < 1 mg/dL (2.0-20.0) L 08/23/18 15:24 Urine Opiates Screen Negative (NEGATIVE) 08/23/18 20:20 Urine Methadone Screen Negative (NEGATIVE) 08/23/18 20:20 Acetaminophen < 10.0 ug/ml (10.0-20.0) L 08/23/18 15:24 Ur Barbiturates Screen Negative (NEGATIVE) 08/23/18 20:20 Ur Phencyclidine Scrn Negative (NEGATIVE) 08/23/18 20:20 Ur Amphetamines Screen Negative (NEGATIVE) 08/23/18 20:20 U Benzodiazepines Scrn Negative (NEGATIVE) 08/23/18 20:20 U Oth Cocaine Metabols Negative (NEGATIVE) 08/23/18 20:20 U Cannabinoids Screen Negative (NEGATIVE) 08/23/18 20:20 Alcohol, Quantitative 48 mg/dL (0-10) H 08/23/18 15:24 Hepatitis A IgM Ab Negative (NEGATIVE) 08/24/18 17:30 Hepatitis A Ab Total Antibody pos (NEGATIVE) 08/24/18 17:30 Hep Bs Antigen Negative (NEGATIVE) 08/24/18 17:30 Hep Bs Antibody Negative (NEGATIVE) 08/24/18 17:30 Hep B Core IgM Ab Negative (NEGATIVE) 08/24/18 17:30 Hepatitis C Antibody Negative (NEGATIVE) 08/24/18 17:30 Blood Type O POSITIVE 08/24/18 13:00 Antibody Screen Negative 08/24/18 13:00 BBK History Checked Patient has bt 08/24/18 13:00 Attending/Attestation - Attestation I have personally seen and examined this patient.: Yes I have fully participated in the care of the patient.: Yes I have reviewed all pertinent clinical information, including history, physical exam and plan: Yes Notes (Text): Please note this DC summary is for 08/30/18 Patient seen and examined by me with resident at approximately 10AM and prior to discharge on 08/30/18. Case including discharge plan discussed with resident. Agree with above with following additions/corrections. Patient is a 63 year old male with past medical history significant for COPD, ETOH abuse, tobacco abuse, bilateral lower extemity ulcers, PAD, pneumothorax, and hyperlipidemia that presented to the emergency room with chest pain and shortness of breath. Please see H&P for full details. Patient was found to have COPD exacerbation with hypoxemia, anemia, hypokalemia, atypical reproducible chest pain, alcohol abuse and withdrawal, transaminitis, history of peripheral artery disease, and tobacco abuse. Patient was treated with nebulizer treatments, IV Solu-Medrol, Pulmicort, and O2 via nasal cannula. Patient remained hypoxic and was evaluated by engineering clerk. Patient was found have an elevated d-dimer. Bilateral lower extremity venous Dopplers were negative for DVT. VQ scan per radiologist was low probability for PE. Patient was counseled at length about tobacco cessation. O2 saturation improved. Patient was ambulated prior to discharge and was satting in the 90s with and after ambulation. Patient was also found to have anemia and stool for occult blood was positive. Patient was placed on Protonix. Patient was seen by felt puller and EGD was performed. EGD per gastroenterology showed gastritis and antral erosions which were biopsied. H&H was stable. Patient was also found to have hypokalemia which resolved with replacement. Patient was also found have atypical reproducible chest pain. ACS was ruled out. Troponins were within normal limits. Also found to have alcohol abuse and withdrawal. Patient was treated with Ativan and CIWA protocol. Patient was continued on thiamine, folic acid, multivitamin. Patient was counseled at length on alcohol cessation. Patient was also found have transaminitis likely secondary to the alcohol abuse. Elevated LFTs were resolving prior to discharge. Hepatitis is panel was negative. Patient was continued on Lipitor for peripheral artery disease. Aspirin was initially held secondary to the anemia and possible GI bleed. Prior to discharge patient was restarted on aspirin as discussed with felt puller. Patient was counseled at length on tobacco cessation. Patient was also seen by physical therapist who recommended home with services. Patient was set up with services by social services director. Patient was feeling much better and was cleared for discharge by all consultants. Patient was discharged home. On day of discharge, patient stated he was feeling much better. Patient was able to ambulate without shortness of breath. Patient denied chest pain or palpitations. No nausea, vomiting, or abdominal pain. Patient was tolerating diet well. No headaches or dizziness. No fevers or chills. No dysuria or burning with urination. Patient was having regular bowel movements. Physical exam: General: Awake and alert lying in bed in no acute distress HEENT: Normocephalic, atraumatic. Extraocular muscles intact. Pupils equal and reactive, no scleral icterus. Oropharynx pink and moist. Poor dentition. Neck supple. Cardiovascular: Regular rhythm. Normal S1 and S2. No murmurs, rubs, or gallops appreciated Pulmonary: Normal respiratory effort. No rhonchi, rales, or wheezing appreciated. Gastrointestinal: Soft, nondistended. Nontender. Positive bowel sounds all 4 quadrants. No guarding. Musculoskeletal: Moves all extremities. No calf tenderness. No edema. Central nervous system: AAO x3. No focal deficits appreciated. Dermatologic: Skin warm and dry. Please see chart for full details. Follow up instructions: Patient to follow up with primary care doctor within 3-5 days. patient to follow up with felt puller within one week. Patient to take medications as prescribed. Patient to stop alcohol and tobacco abuse. All instructions explained to the patient in detail. Patient both understands and agrees to all instructions. Written instructions also given. Time spent in discharging the patient including chart review, medication reconciliation, discussion with the patient, medical records administrator, consultants, and nursing staff was approximately 50 minutes.
[2018-08-30] MEDS: levoFLOXacin 500 mg in D5W 500 MG/100 ML BAG IVPB SCH (10:06)
[2018-08-30] MEDS: MethylPREDNISolone 40 mg Vial IVP SCH (10:07)
[2018-08-30] MEDS: Enoxaparin 40 mg Syringe SC SCH (10:07)
[2018-08-30] MEDS: Sodium Chloride 0.9% 1,000 ML IV SCH (12:07)
== END 2018-08-30 17:11 | disposition home or self-care (01) | DRG 140 ==
LOC: ED 14:33 → ERH 18:37 → 2RSO 23:31 → 3RNO 08-24 13:39
PROVIDERS: ADMIT Internal Medicine; ATTEND Hospitalist
PROC: 3E0F7GC Introduction of Other Therapeutic Substance into Respiratory Tract, Via Natural or Artificial Opening (ICD-10-PCS; 2018-08-24)
PROC: 0DB68ZX Excision of Stomach, Via Natural or Artificial Opening Endoscopic, Diagnostic (ICD-10-PCS; principal; 2018-08-29 11:00)
DX: J44.1 Chronic obstructive pulmonary disease with (acute) exacerbation (principal); E87.1 Hypo-osmolality and hyponatremia; E87.8 Other disorders of electrolyte and fluid balance, not elsewhere classified; F10.239 Alcohol dependence with withdrawal, unspecified; R09.02 Hypoxemia; R07.89 Other chest pain; R19.5 Other fecal abnormalities; I73.9 Peripheral vascular disease, unspecified; L97.829 Non-pressure chronic ulcer of other part of left lower leg with unspecified severity; L97.819 Non-pressure chronic ulcer of other part of right lower leg with unspecified severity; E78.5 Hyperlipidemia, unspecified; E87.6 Hypokalemia; D64.9 Anemia, unspecified; K29.70 Gastritis, unspecified, without bleeding; R79.1 Abnormal coagulation profile; K44.9 Diaphragmatic hernia without obstruction or gangrene; Y90.2 Blood alcohol level of 40-59 mg/100 ml; F17.210 Nicotine dependence, cigarettes, uncomplicated; Z89.421 Acquired absence of other right toe(s)